=== PATIENT | female | born 1950 | race Caucasian/White ===

== ENCOUNTER → 2018-09-19 | Outpatient (CLI) | payer MEDICARE, SELFPAY ==
[2018-08-26 14:14] VITALS: BMI 37.2
--- NOTE | 2018-09-19 07:46 | ECHOD_ITS ---
Reason For Study: MURMUR Procedure This was a 2D Doppler, Color Flow transthoracic echocardiogram. The exam was of adequate technical quality. Exam performed in department. Left Ventricle Normal LV size. Left ventricular systolic function is normal. The estimated ejection fraction is 65 %. No evidence for diastolic dysfunction. No regional wall motion abnormalities noted. Right Ventricle Normal RV size. Normal systolic function. Atria The left atrium is mildly enlarged. Normal right atrium. No doppler evidence for ASD. Mitral Valve There is mild mitral annular calcification. Distention of the mitral annular calcification onto the mitral valve leaflet. Mild (1+) mitral valve insufficiency. Tricuspid Valve Normal tricuspid valve. Trivial tricuspid valve insufficiency. Right ventricular systolic pressure estimated to be 35 mmHg. Aortic Valve Trisinus/trileaflet aortic valve. Mild diffuse aortic valve thickening. Moderate focal aortic valve calcification. Mild aortic stenosis. Mild (1+) aortic valve insufficiency. Pulmonic Valve The pulmonic valve is not well visualized. Great Vessels Normal sized aortic root. Pericardium/Pleural No pericardial effusion. MMode/2D Measurements & Calculations LVIDd: 4.9 cm IVSd: 0.65 cm LVOT diam: 2.0 cm LVIDs: 3.0 cm LVPWd: 0.74 cm LVOT area: 3.0 cm2 RVDd: 3.5 cm FS: 37.7 % Ao root diam: 2.1 cm LAV(MOD-bp): 67.7 ml Aortic Valve Planimetry: 1.1 cm2 LAV(MOD-bp) Indexed: 35.0 ml/m2 LAV(MOD-sp2): 70.9 ml LAV(MOD-sp4): 65.2 ml LA A4 area: 21.7 cm2 RA A4 area: 14.3 cm2 Time Measurements MV dec time: 0.23 sec Doppler Measurements & Calculations MV E max rosendo: 93.9 cm/sec Lat Peak E' Rosendo: 10.1 cm/sec Med Peak E' Rosendo: 8.1 cm/sec MV A max rosendo: 110.6 cm/sec E/E' lat: 9.3 E/E' med: 11.6 MV E/A: 0.85 MV V2 max: 110.8 cm/sec Ao V2 max: 281.4 cm/sec AI max rosendo: 484.1 cm/sec MV max P.9 mmHg Ao max P.7 mmHg AI max P.8 mmHg MV V2 mean: 73.2 cm/sec Ao V2 mean: 210.5 cm/sec AI dec slope: 305.6 cm/sec2 MV mean P.3 mmHg Ao mean P.1 mmHg AI P1/2t: 464.0 msec MV V2 VTI: 35.3 cm Ao V2 VTI: 69.2 cm MVA(VTI): 2.6 cm2 AZ(I,D): 1.3 cm2 AZ(V,D): 1.3 cm2 LV V1 max: 118.9 cm/sec SV(LVOT): 90.9 ml TR max rosendo: 266.8 cm/sec LV V1 max P.7 mmHg TR max P.5 mmHg LV V1 mean P.1 mmHg LV V1 mean: 83.1 cm/sec LV V1 VTI: 30.3 cm MV P1/2t-pr_phl: 112.5 msec Interpretation Summary Left ventricular systolic function is normal. The estimated ejection fraction is 65 %. The left atrium is mildly enlarged. There is mild mitral annular calcification. Distention of the mitral annular calcification onto the mitral valve leaflet. Mild (1+) mitral valve insufficiency. Trivial tricuspid valve insufficiency. Mild aortic stenosis. Mild (1+) aortic valve insufficiency. Right ventricular systolic pressure estimated to be 35 mmHg. No evidence for diastolic dysfunction. Ordering Physician: Alexis Grewal Referring Physician: AUGUSTINE MATHEW Performed By: Deann Crain, RDCS, RVT
== END | disposition home or self-care (01) ==
PROVIDERS: Family Provider Family Medicine; PCP Family Medicine; Referring Provider Internal Medicine Cardiovascular Disease; Visit Provider Internal Medicine Cardiovascular Disease
DX: I49.1 Atrial premature depolarization (principal); I35.0 Nonrheumatic aortic (valve) stenosis
CPT/HCPCS: 93306

== ENCOUNTER → 2021-09-27 | Outpatient (CLI) | payer MEDICARE, SELFPAY ==
--- NOTE | 2021-09-27 13:51 | ECHOD_ITS ---
Reason For Study: Palps, Procedure This was a 2D Doppler, Color Flow transthoracic echocardiogram. The exam was of adequate technical quality. Exam performed in department. Left Ventricle Normal LV size. Left ventricular systolic function is normal. The estimated ejection fraction is 65 %. There is evidence of diastolic dysfunction. No regional wall motion abnormalities noted. Right Ventricle Normal RV size. Normal systolic function. Atria The left atrium is mildly enlarged. Normal right atrium. No doppler evidence for ASD. Mitral Valve There is mild to moderate mitral annular calcification. Extension of the mitral annular calcification onto the base of the posterior mitral valve leaflet. The mitral valve chordae are thickened and/or calcified. Trivial mitral valve insufficiency. Tricuspid Valve Normal tricuspid valve. Trivial tricuspid valve insufficiency. Right ventricular systolic pressure estimated to be 25 mmHg. Aortic Valve Trisinus/trileaflet aortic valve. Mild diffuse aortic valve thickening. Mild diffuse aortic valve calcification. Moderate aortic stenosis. Mild (1+) aortic valve insufficiency. Pulmonic Valve The pulmonic valve is not well visualized. Great Vessels Normal sized aortic root. Pericardium/Pleural No pericardial effusion. MMode/2D Measurements & Calculations LVIDd: 4.1 cm IVSd: 0.94 cm LVOT diam: 2.0 cm LVIDs: 2.3 cm LVPWd: 0.91 cm LVOT area: 3.0 cm2 RVDd: 3.4 cm FS: 44.0 % Ao root diam: 2.9 cm LAV(MOD-bp): 67.1 ml LVAd ap4: 26.4 cm2 LAV(MOD-bp) Indexed: 35.8 ml/m2 LVLd ap4: 7.3 cm LAV(MOD-sp2): 57.5 ml EDV(MOD-sp4): 79.8 ml LAV(MOD-sp4): 77.5 ml EDV(sp4-el): 81.4 ml LVAs ap4: 14.1 cm2 LVLs ap4: 6.1 cm ESV(MOD-sp4): 27.7 ml ESV(sp4-el): 27.5 ml EF(MOD-sp4): 65.3 % EF(sp4-el): 66.2 % LVAd ap2: 26.5 cm2 SV(MOD-sp4): 52.1 ml SV(MOD-sp2): 51.7 ml LVLd ap2: 7.3 cm EDV(MOD-sp2): 79.8 ml EDV(sp2-el): 81.6 ml LVAs ap2: 14.5 cm2 LVLs ap2: 6.3 cm ESV(MOD-sp2): 28.1 ml ESV(sp2-el): 28.2 ml EF(MOD-sp2): 64.7 % SV(sp4-el): 53.9 ml LA dimension(2D): 4.0 cm LA A4 area: 22.8 cm2 RA A4 area: 10.2 cm2 Doppler Measurements & Calculations MV E max rosendo: 104.2 cm/sec Lat Peak E' Rosendo: 7.6 cm/sec Med Peak E' Rosendo: 6.0 cm/sec MV A max rosendo: 121.4 cm/sec E/E' lat: 13.7 E/E' med: 17.3 MV E/A: 0.86 Ao V2 max: 387.9 cm/sec AI max rosendo: 315.8 cm/sec LV V1 max: 134.1 cm/sec Ao max P.3 mmHg AI max P.9 mmHg LV V1 max P.2 mmHg Ao V2 mean: 279.5 cm/sec AI dec slope: 173.0 cm/sec2 LV V1 mean P.0 mmHg Ao mean P.8 mmHg AI P1/2t: 534.7 msec LV V1 mean: 95.2 cm/sec Ao V2 VTI: 96.2 cm LV V1 VTI: 32.5 cm AZ(I,D): 1.0 cm2 ZA(V,D): 1.0 cm2 SV(LVOT): 97.2 ml PA V2 max: 125.0 cm/sec TR max rosendo: 235.6 cm/sec TR max P.2 mmHg ECHO/Echo Complete Interpretation Summary Left ventricular systolic function is normal. The estimated ejection fraction is 65 %. The left atrium is mildly enlarged. There is mild to moderate mitral annular calcification. Extension of the mitral annular calcification onto the base of the posterior mi tral valve leaflet. The mitral valve chordae are thickened and/or calcified. Trivial mitral valve insufficiency. Trivial tricuspid valve insufficiency. Moderate aortic stenosis. Mild (1+) aortic valve insufficiency. Right ventricular systolic pressure estimated to be 25 mmHg. There is evidence of diastolic dysfunction. Ordering Physician: Alexis Grewal Referring Physician: Mari Mac Performed By: Michelle Bird RDCS
== END | disposition home or self-care (01) ==
LOC: CVS 13:48
PROVIDERS: PCP Family Medicine; Referring Provider Internal Medicine Cardiovascular Disease; Visit Provider Internal Medicine Cardiovascular Disease
DX: R00.2 Palpitations (principal); I35.0 Nonrheumatic aortic (valve) stenosis
CPT/HCPCS: 93306

== ENCOUNTER 2022-09-10 14:28 | Observation (INO) | payer MEDICARE, SELFPAY ==
[2022-09-10 14:28] VITALS: BP 117/76; PULSE 74; RESP 18; TEMP 36.1; O2SAT 97
--- NOTE | 2022-09-10 14:49 | EX.ED.DYSGE1 ---
HPI <JOB Lopez - Last Filed: 09/10/22 16:42> History of Present Illness Chief Complaint: Lower Extremity Injury Narrative Narrative: Patient is a 71-year-old female with history of hypertension, mitral valve prolapse, asthma who presents to the emergency department after a mechanical fall injuring her left ankle, left knee. Patient states she was visiting her here when she was walking, she missed stepped, rolling her left ankle and falling to her left knee. She states that she is having difficulty bearing weight, there is swelling, and she is here for evaluation. She denies any head or neck injury. Denies any LOC. [facility] <JOB Lopez - Last Filed: 09/10/22 16:42> [facility] Medical History Abnormal EKG Aortic stenosis Asthma Atrial premature depolarization COPD (chronic obstructive pulmonary disease) Lung nodules Nonrheumatic aortic (valve) stenosis TAYLOR (obstructive sleep apnea) Palpitations Premature atrial contraction Home Medications albuterol sulfate 90 mcg/actuation aerosol inhaler (ProAir HFA) 1 puff inhalation Q6H 06/20/17 [History Last Taken Unknown] aspirin 81 mg tablet,delayed release 81 mg PO QDAY 06/20/17 [History Last Taken Unknown] cetirizine 10 mg capsule (Zyrtec) 10 mg PO QDAY PRN Allergies 06/20/17 [History Last Taken Unknown] fluticasone propionate 50 mcg/actuation nasal spray,suspension (Flonase Allergy Relief) 1 spray intranasal QDAY PRN Allergies 06/20/17 [History Last Taken Unknown] omega-3 fatty acids 1,000 mg capsule (Fish Oil Concentrate) 1,000 mg PO QDAY 06/20/17 [History Last Taken Unknown] lisinopril 5 mg tablet 5 mg PO DAILY 09/01/19 [History Last Taken Unknown] ferrous sulfate 325 mg (65 mg iron) tablet 325 mg PO DAILY 08/29/21 [History Last Taken Unknown] pantoprazole 40 mg tablet,delayed release 40 mg PO DAILY 08/29/21 [History Last Taken Unknown] metoprolol succinate 25 mg tablet,extended release 24 hr (Toprol XL) 25 mg PO QDAY #90 tabs 05/22/22 [Rx Last Taken Unknown] albuterol sulfate 90 mcg/actuation aerosol inhaler (ProAir HFA) 1 inh inhalation Q6H PRN Shortness Of Breath 09/10/22 [History Last Taken Unknown] fluticasone 250 mcg-salmeterol 50 mcg/dose blistr powdr for inhalation (Wixela Inhub) 1 inh inhalation Q12H 09/10/22 [History Last Taken Unknown] Allergy/AdvReac Type Severity Reaction Status Date / Time acetaminophen [From Percocet] AdvReac Intermediate N/V and Verified 09/10/22 14:28 Dizziness codeine AdvReac Intermediate Abdominal Verified 09/10/22 14:28 Pain hydrocodone [From Vicodin] AdvReac Intermediate N/V and Verified 09/10/22 14:28 Dizziness oxycodone [From Percocet] AdvReac Intermediate N/V and Verified 09/10/22 14:28 Dizziness Family History Father Heart disease Mother Heart disease Surgical History H/O nasal polypectomy History of total right knee replacement Social History Smoking Status: Current every day smoker tobacco type: cigarettes alcohol intake: never substance use type: does not use ROS <JOB Lopez - Last Filed: 09/10/22 16:42> ROS ED ROS Narrative Constitutional: Negative for fever, chills, weight loss, weakness Eyes: Negative for vision loss, vision change, double vision ENT: Negative for any sore throat, ear pain, congestion Cardiovascular: Negative for any chest pain, tightness, palpitations Respiratory: Negative for any cough, sputum production, hemoptysis, dyspnea, dyspnea on exertion, orthopnea Gastrointestinal: Negative for any abdominal pain, nausea, vomiting, diarrhea, constipation, blood in stool, blood in vomit : Negative for any urinary frequency, dysuria, retention, blood in urine Muscle skeletal: Negative for any muscle joint pain, stiffness, myalgias, arthralgias, neck pain, back pain. Positive for left ankle, left knee pain Neurological: Negative for any headache, syncope, numbness or tingling, dizziness Skin: Negative for any rashes, lumps, itching, abrasions, lacerations Psychiatric: Negative for any depression, anxiety, stress, suicidal ideation, homicidal ideation Hematologic: Negative for any easy bruising, excessive bruising, easy bleeding Allergies: Negative for any eczema, hives, rash EXAM <JOB Lopez - Last Filed: 09/10/22 16:42> Physical Exam Narrative Exam Narrative: Vital signs reviewed. Extremities: No peripheral edema. Patient has some edema to the lateral malleolus, patient has worsening pain with dorsiflexion, plantarflexion. Patient has no pain along the fifth metatarsal. Patient has most of the pain around the lateral malleolus of the ankle. Patient also has pain to the inferior patella. She has difficulty with flexion. She does have an intact extensor mechanism. Neuro: Cranial nerves II through XII intact, no focal neurological deficits. Skin: Clean dry and intact with no rash, purpura, petechiae, vesicles or pustules. Backs/flank: No CVA tenderness, no midline spinal tenderness, no deformity. Psych: Normal mood and affect. No SI, HI or acute psychosis. Const Vital Signs: 09/10/22 14:28 Temperature 96.9 F L Temperature Source Temporal Pulse Rate 74 Respiratory Rate 18 Blood Pressure 117/76 Blood Pressure Mean 89 Pulse Ox 97 Oxygen Delivery Method Room Air Positive well nourished and well developed General Appearance ED: well developed <Dr. Luis Fernando Hameed DO - Last Filed: 09/10/22 17:12> Physical Exam Const Vital Signs: 09/10/22 14:28 Temperature 96.9 F L Temperature Source Temporal Pulse Rate 74 Respiratory Rate 18 Blood Pressure 117/76 Blood Pressure Mean 89 Pulse Ox 97 Oxygen Delivery Method Room Air MDM <JOB Lopez - Last Filed: 09/10/22 16:42> [facility] Lab Data Labs: Laboratory Results - last 24 hr 09/10/22 09/10/22 09/10/22 16:40 16:40 16:40 WBC 7.2 RBC 4.14 L Hgb 12.8 Hct 39.5 MCV 95.4 MCH 30.9 MCHC 32.4 RDW Std Deviation 46.6 H RDW Coeff of Yessi 13.2 Plt Count 260 MPV 9.6 Immature Gran % (Auto) 0.300 Neut % (Auto) 67.4 Lymph % (Auto) 20.2 [place] % (Auto) 6.4 Eos % (Auto) 4.7 Baso % (Auto) 1.0 Absolute Neuts (auto) 4.9 Absolute Lymphs (auto) 1.46 Nucleated RBC % 0 PT 13.0 INR 1.0 Sodium 141 Potassium 4.2 Chloride 109 H Carbon Dioxide 23.0 Anion Gap 9 BUN 19 H Creatinine 1.37 H Estim Creat Clear Calc 31.61 Est GFR (MDRD) Af Amer 49 L Est GFR (MDRD) Non-Af 40 L BUN/Creatinine Ratio 13.9 Glucose 105 Calcium 8.9 Radiography Diagnostic Testing: Clinical Impression(s) from Imaging Studies Ankle X-Ray 09/10/22 15:45 IMPRESSION: Nondisplaced lateral malleolar fracture. Posterior tibial fracture. Electronically Signed: Capri Washington MD at 16:18 EDT Reading Location ID and State: Sommer Pandey MD Tel , Service support , Knee X-Ray 09/10/22 15:45 IMPRESSION: Large joint effusion. Suspect mild depression of the lateral tibial plateau, age indeterminate. Consider CT of the knee to exclude acute fracture. Electronically Signed: Capri Washington MD at 16:10 EDT Reading Location ID and State: Sommer Pandey MD Tel , Service support , Treatment and Re-Evaluation :: All radiologic examinations were read, reviewed by the emergency department attending. From these reads, a plan of care will be put in place. Patient presents to the emergency department with complaints of left ankle pain, left knee pain following a fall that occurred while she was visiting her in the hospital today. Patient is unable to bear weight, patient is swollen. Patient did receive x-rays of the left ankle which showed a nondisplaced lateral malleolus fracture, as well as posterior tibial fracture. Patient's x-ray of the knee shows a large joint effusion with suspected mild depression of the lateral tibial plateau, patient is significantly tender on palpation to this area, patient be clinically treated for a fracture. Patient was offered analgesia however states that she does not want anything secondary to having all of her allergies. Secondary to the patient's weight, age, lack of family members that live close, patient is unable to care for self at home. She will be nonweightbearing. Patient will need to be admitted to the hospital. Did speak to Dr. Pryor orthopedics, he would like her to be placed in a long posterior leg splint with a sugar-tong. I spoke with Dr. Jackson hospitalist, he will admit this patient. <Dr. Luis Fernando Hameed, DO - Last Filed: 09/10/22 17:12> [facility] Narrative Medical decision making narrative: Patient presents to the emergency department with complaints of left ankle pain, left knee pain following a fall that occurred while she was visiting her in the hospital today. Patient is unable to bear weight, patient is swollen. Patient did receive x-rays of the left ankle which showed a nondisplaced lateral malleolus fracture, as well as posterior tibial fracture. Patient's x-ray of the knee shows a large joint effusion with suspected mild depression of the lateral tibial plateau, patient is significantly tender on palpation to this area, patient be clinically treated for a fracture. Patient was offered analgesia however states that she does not want anything secondary to having all of her allergies. Secondary to the patient's weight, age, lack of family members that live close, patient is unable to care for self at home. She will be nonweightbearing. Patient will need to be admitted to the hospital. Did speak to Dr. Pryor orthopedics, he would like her to be placed in a long posterior leg splint with a sugar-tong. I spoke with Dr. Jackson hospitalist, he will admit this patient. Patient presenting after mechanical fall with visiting her in the hospital. He was admitted yesterday. She had a fall and her x-rays show on my interpretation that she has a posterior tibial/distal fibular fracture of the left ankle as well as a plateau fracture on the same side. Patient does not want a thing for pain because she does not tolerate any pain medicine. Patient is elderly and obese a and a long discussion was held with her regarding her ability to get around at home should she be in a long-leg splint or even an immobilizer and have to be nonweightbearing on the left leg and she did not think she could do it at home. again is currently hospitalized and her son cannot help all the time. Given this we will admit her to the hospital. Lab Data Labs: Laboratory Results - last 24 hr 09/10/22 09/10/22 09/10/22 16:40 16:40 16:40 WBC 7.2 RBC 4.14 L Hgb 12.8 Hct 39.5 MCV 95.4 MCH 30.9 MCHC 32.4 RDW Std Deviation 46.6 H RDW Coeff of Yessi 13.2 Plt Count 260 MPV 9.6 Immature Gran % (Auto) 0.300 Neut % (Auto) 67.4 Lymph % (Auto) 20.2 [place] % (Auto) 6.4 Eos % (Auto) 4.7 Baso % (Auto) 1.0 Absolute Neuts (auto) 4.9 Absolute Lymphs (auto) 1.46 Nucleated RBC % 0 PT 13.0 INR 1.0 Sodium 141 Potassium 4.2 Chloride 109 H Carbon Dioxide 23.0 Anion Gap 9 BUN 19 H Creatinine 1.37 H Estim Creat Clear Calc 31.61 Est GFR (MDRD) Af Amer 49 L Est GFR (MDRD) Non-Af 40 L BUN/Creatinine Ratio 13.9 Glucose 105 Calcium 8.9 Radiography Diagnostic Testing: Clinical Impression(s) from Imaging Studies Ankle X-Ray 09/10/22 15:45 IMPRESSION: Nondisplaced lateral malleolar fracture. Posterior tibial fracture. Electronically Signed: Capri Washington MD at 16:18 EDT Reading Location ID and State: Sommer Pandey MD Tel , Service support , Knee X-Ray 09/10/22 15:45 IMPRESSION: Large joint effusion. Suspect mild depression of the lateral tibial plateau, age indeterminate. Consider CT of the knee to exclude acute fracture. Electronically Signed: Capri Washington MD at 16:10 EDT Reading Location ID and State: Sommer Pandey MD Tel , Service support , All radiologic examinations were read, reviewed by the emergency department attending. From these reads, a plan of care will be put in place. Discharge Plan Dx/Rx/DC Orders Clinical Impression: Fall, Ankle fracture, lateral malleolus, closed, Posterior tibial plateau fracture Disposition Disposition: [facility]
[2022-09-10 15:25] VITALS: BMI 34.3
--- NOTE | 2022-09-10 15:45 | RAD_ITS ---
INDICATION: fall EXAMINATION/TECHNIQUE: X-RAY - LEFT XR Ankle Min 3 Views 4 VIEWS COMPARISON: FINDINGS: Bones are demineralized. Acute, nondisplaced fracture of the lateral malleolus. No angulation. Acute, nondisplaced fracture of the posterior tibia is suspected, extending to the articular surface. Evaluation is limited due to superimposed bandage. No destructive bone changes. Joint spaces are well-maintained. Normal alignment. Marked anterior and lateral soft tissue swelling. Mild medial soft tissue swelling. No radiopaque foreign body or soft tissue gas. RAD/Ankle min 3 Views IMPRESSION: Nondisplaced lateral malleolar fracture. Posterior tibial fracture. Electronically Signed: Capri Washington MD at 16:18 EDT Reading Location ID and State: [id number] / Tel , Service support ,
--- NOTE | 2022-09-10 15:45 | RAD_ITS ---
INDICATION: fall EXAMINATION/TECHNIQUE: X-RAY - LEFT XR Knee Complete 4 Views or More 4 VIEWS COMPARISON: FINDINGS: Bones are demineralized. Mild depression of the lateral tibial plateau, age indeterminate. No destructive bone changes. Large joint effusion. Joint spaces are otherwise well-maintained. Normal alignment. Soft tissues are unremarkable. No radiopaque foreign body or soft tissue gas. RAD/Knee 4 or More Views IMPRESSION: Large joint effusion. Suspect mild depression of the lateral tibial plateau, age indeterminate. Consider CT of the knee to exclude acute fracture. Electronically Signed: Capri Washington MD at 16:10 EDT Reading Location ID and State: [id number] / Tel , Service support ,
[2022-09-10 16:51] LABS: Absolute Lymphocyte Count 1.46 X10^3/uL (0.83-4.51); Absolute Neutrophil Count 4.9 X10^3/uL (2.0-7.7); Basophil# 0.07 X10^3/uL; Eosinophil# 0.34 X10^3/uL; Eosinophils% 4.7 % (0-5); Hematocrit 39.5 % (37-47); Hemoglobin 12.8 g/dL (12.0-15.0); Lymphocyte # 1.46 X10^3/ul (0.83-4.51); Lymphocyte % 20.2 % (19-41); Mean Corp Hgb Conc 32.4 g/dL (32-36); Mean Corpuscular Hgb 30.9 pg (27.0-32.0); Mean Corpuscular Volume 95.4 fL (81-99); Mean Platelet Vol. 9.6 fl (6.2-12.0); Monocyte# 0.46 X10^3/uL; Monocyte% 6.4 % (0-10); NRBC Flagged by Analyzer 0 % (0-5); Neutrophil # 4.87 X10^3/uL (2.7-7.7); Neutrophil % 67.4 % (47-70); Platelet Count 260 K/mm3 (150-450); RBC Distribution Width CV 13.2 % (11.6-14.6); RBC Distribution Width SD 46.6 fl (35.1-43.9); Red Blood Count 4.14 M/mm3 (4.2-5.4); White Blood Count 7.2 K/mm3 (4.4-11.0)
[2022-09-10 17:03] LABS: Anion Gap 9 (5-15); BUN 19 mg/dL (7-18); BUN/Creat Ratio 13.9 RATIO (10-20); Calcium,Total 8.9 mg/dL (8.5-10.1); Chloride 109 mmol/L (98-107); Creatinine, Serum 1.37 mg/dL (0.55-1.02); EST Glomerular Filtration Rate 40 mL/min (>60); Est Glom Filt Rate - Afr Amer 49 mL/min (>60); Estimated Creatinine Clearance 31.61 ml/min; Glucose 105 mg/dL (74-106); Potassium 4.2 mmol/L (3.5-5.1); Sodium Level 141 mmol/L (136-145)
[2022-09-10] MEDS: fentaNYL 100 MCG/2 ML Ampul 50 MCG IV (17:40)
[2022-09-10] MEDS: Ondansetron 4 MG/2 ML Vial IV (17:43)
[2022-09-10 17:47] VITALS: BP 121/64; PULSE 92; RESP 16; TEMP 37.2; O2SAT 94
--- NOTE | 2022-09-10 18:00 | PCM.HP.STD ---
[facility] - General General Date of Admission: 09/10/22 Date of Service: 09/10/22 Chief Complaint: Buckled over shoe and fell down on her left knee and ankle. HPI Narrative EDDY MCDONALD, is a 71 F who is visiting in the hospital for her who is also admitted was brought to ER after she buckled over the on the hallway and fell down on her left knee and ankle and twisted it. She has history of severe degenerative arthritis of left knee and is scheduled with orthopedic surgeon outside. She said she was supposed to have left knee TKR. She felt severe pain after fall intensity from knee, leg and ankle along with the swelling. She has difficulty bearing weight therefore brought to ED. She denies head injury or loss of consciousness. X-rays were done in the ER and left knee x-ray shows large joint effusion with suspected mild depression of lateral tibial plateau, age-indeterminate. Ankle x-ray showed nondisplaced lateral malleolus fracture and posterior tibial fracture. ER physician consulted Dr. Aidan Pryor who advised long-leg splint and nonweightbearing on left lower extremity. Patient has a history of asthma but does not seem in acute exacerbation. No acute cough, shortness of breath, chest pain, tightness or pressure. No acute URI symptoms including runny nose. Denies dysuria. [facility] Medical History Abnormal EKG Aortic stenosis Asthma Atrial premature depolarization COPD (chronic obstructive pulmonary disease) Lung nodules Nonrheumatic aortic (valve) stenosis TAYLOR (obstructive sleep apnea) Palpitations Premature atrial contraction Home Medications albuterol sulfate 90 mcg/actuation aerosol inhaler (ProAir HFA) 1 puff inhalation Q6H 06/20/17 [History Last Taken Unknown] aspirin 81 mg tablet,delayed release 81 mg PO QDAY 06/20/17 [History Last Taken Unknown] cetirizine 10 mg capsule (Zyrtec) 10 mg PO QDAY PRN Allergies 06/20/17 [History Last Taken Unknown] fluticasone propionate 50 mcg/actuation nasal spray,suspension (Flonase Allergy Relief) 1 spray intranasal QDAY PRN Allergies 06/20/17 [History Last Taken Unknown] omega-3 fatty acids 1,000 mg capsule (Fish Oil Concentrate) 1,000 mg PO QDAY 06/20/17 [History Last Taken Unknown] lisinopril 5 mg tablet 5 mg PO DAILY 09/01/19 [History Last Taken Unknown] ferrous sulfate 325 mg (65 mg iron) tablet 325 mg PO DAILY 08/29/21 [History Last Taken Unknown] pantoprazole 40 mg tablet,delayed release 40 mg PO DAILY 08/29/21 [History Last Taken Unknown] metoprolol succinate 25 mg tablet,extended release 24 hr (Toprol XL) 25 mg PO QDAY #90 tabs 05/22/22 [Rx Last Taken Unknown] albuterol sulfate 90 mcg/actuation aerosol inhaler (ProAir HFA) 1 inh inhalation Q6H PRN Shortness Of Breath 09/10/22 [History Last Taken Unknown] fluticasone 250 mcg-salmeterol 50 mcg/dose blistr powdr for inhalation (Wixela Inhub) 1 inh inhalation Q12H 09/10/22 [History Last Taken Unknown] Allergy/AdvReac Type Severity Reaction Status Date / Time acetaminophen [From Percocet] AdvReac Intermediate N/V and Verified 09/10/22 14:28 Dizziness codeine AdvReac Intermediate Abdominal Verified 09/10/22 14:28 Pain hydrocodone [From Vicodin] AdvReac Intermediate N/V and Verified 09/10/22 14:28 Dizziness oxycodone [From Percocet] AdvReac Intermediate N/V and Verified 09/10/22 14:28 Dizziness Family History Father Heart disease Mother Heart disease Surgical History H/O nasal polypectomy History of total right knee replacement Social History Smoking Status: Current every day smoker tobacco type: cigarettes alcohol intake: never substance use type: does not use ROS ROS Narrative Constitutional: Reports fatigue and weakness. No fever. HEENT: Reports systems reviewed and no addt'l complaints, except as documented Respiratory/Chest: No acute shortness of breath or respiratory distress. CVS: Heart murmur. No chest pain pressure tightness. Gastrointestinal: Denies coffee ground emesis, hematemesis or vomiting Genitourinary: Denies burning urination or new urinary tract symptoms Musculoskeletal: As described in HPI. Neurologic: Denies seizure-like symptoms. No acute strokelike symptoms. skin: No ulcer. No rash Endocrinology: Reports systems reviewed and no addt'l complaints, except as documented. Morbid obesity. Hematologic/Lymphatic: Reports systems reviewed and no addt'l complaints, except as documented Rest 14 ROS are negative except as mentioned in HPI Vital Signs Vital Signs Vital Signs: 09/10/22 14:28 09/10/22 17:47 Temperature 96.9 F L 99.0 F Temperature Source Temporal Temporal Pulse Rate 74 92 Respiratory Rate 18 16 Blood Pressure 117/76 121/64 H Blood Pressure Mean 89 83 Pulse Ox 97 94 Oxygen Delivery Method Room Air Room Air Weight Weight: 194 lb 0.108 oz Body Mass Index (BMI) 34.3 Physical Exam Narrative General: Alert, Oriented x3, Cooperative, morbid obesity BMI of 34.4 kg/m? HEENT: Atraumatic, PERRLA, EOMI, Normocephalic Oral: Oral mucosa moist. No Gingival or Mucosal Lesions/ Ulcerations Neck: Supple, No JVD, Negative Carotid Bruits Lungs: Air entry diminished in bilateral lung bases. Mild expiratory wheezing. No tachypnea or hypoxia. Cardiovascular: Regular rate, Regular Rhythm, Normal S1, Normal S2, ejection systolic murmur right second ICS and LLSB. Aortic stenosis murmur. Abdomen: Bowel Sounds Present, Soft, Non Tender, Non-Distended : No renal angle tenderness. No suprapubic tenderness. Extremities: Swelling of left lower extremity due to fall, Capillary Refill Less than 3 Seconds Skin: No rashes, No breakdown Musculoskeletal: Swelling, tenderness from left knee below. LLE long splint in ED. Can move toes. No Tenderness to Palpation of Joints or Extremities Neurological: Cranial nerves II-XII grossly intact, DTR 2+/4 and Symmetrical, Neuro grossly intact Psych/Mental Status: Flat affect. Pain Results Lab / Micro Data Result Diagrams: 09/10/22 16:40 09/10/22 16:40 Labs: Laboratory Results - last 24 hr 09/10/22 16:40: PT 13.0, INR 1.0 09/10/22 16:40: WBC 7.2, RBC 4.14 L, Hgb 12.8, Hct 39.5, MCV 95.4, MCH 30.9, MCHC 32.4, RDW Std Deviation 46.6 H, RDW Coeff of Yessi 13.2, Plt Count 260, MPV 9.6, Immature Gran % (Auto) 0.300, Neut % (Auto) 67.4, Lymph % (Auto) 20.2, [place] % (Auto) 6.4, Eos % (Auto) 4.7, Baso % (Auto) 1.0, Absolute Neuts (auto) 4.9, Absolute Lymphs (auto) 1.46, Nucleated RBC % 0 09/10/22 16:40: Sodium 141, Potassium 4.2, Chloride 109 H, Carbon Dioxide 23.0, Anion Gap 9, BUN 19 H, Creatinine 1.37 H, Estim Creat Clear Calc 31.61, Est GFR (MDRD) Af Amer 49 L, Est GFR (MDRD) Non-Af 40 L, BUN/Creatinine Ratio 13.9, Glucose 105, Calcium 8.9 Radiology Impression Ankle X-Ray 09/10/22 15:45 IMPRESSION: Nondisplaced lateral malleolar fracture. Posterior tibial fracture. Electronically Signed: Capri Washington MD at 16:18 EDT Reading Location ID and State: Sommer Pandey MD Tel , Service support , Knee X-Ray 09/10/22 15:45 IMPRESSION: Large joint effusion. Suspect mild depression of the lateral tibial plateau, age indeterminate. Consider CT of the knee to exclude acute fracture. Electronically Signed: Capri Washington MD at 16:10 EDT Reading Location ID and State: Sommer Pandey MD Tel , Service support , Assessment & Plan Assessment/Plan (1) Fall: (2) Ankle fracture, lateral malleolus, closed: (3) Posterior tibial plateau fracture: PLAN: Plan This 71-year-old female is being admitted after a fall resulting into fracture as described below: 1. Acute debility due to left posterior tibial plateau fracture with mild depression of lateral tibia, left nondisplaced lateral malleolar fracture of ankle: Patient is being admitted on [facility] floor. Pain control with Tylenol and morphine. Dr. Aidan Pryor is consulted. Patient seems allergic with hydrocodone and oxycodone. Compazine as needed for nausea or vomiting. PT and OT ordered. Incentive spirometry. 2. Nonrheumatic aortic stenosis, history of premature atrial contraction and chronic HFpEF: Patient had echo in September 2021. Reported EF 65%, moderate aortic stenosis, mild aortic insufficiency. RVSP 25 mmHg. Mild to moderate mitral annular calcification with trivial MR. LA mildly enlarged. Evidence of diastolic dysfunction. Patient does not seem to be in acute heart failure. 3. COPD/asthma overlap with active smoker: Patient still smokes cigarettes. Denies shortness of breath but patient is in mild wheezing therefore DuoNeb every 4 hourly as needed first dose now ordered. Incentive spirometry. Continue baseline inhaler fluticasone salmeterol and fluticasone nasal spray. It seems patient also has a lung nodule. Follow-up in pulmonary clinic as an outpatient. 4. Obstructive sleep apnea: CPAP ordered. 5. DVT prophylaxis: Heparin 5000 subcutaneous every 8 hourly. Living will/advanced directive/end of life care: Patient does have living will or advanced directive. Her is power of health care attorney for health. After discussion of benefits/risks procedures involved with full code, DNR CC arrest and DNR CC, the patient opted for full code. Discussed with the patient's son near the bedside Patient does want artificial life support including intubation, tube feed, ventilator and/chest compression, central venous catheter, vasopressor and DC shock if needed Total time spent in [id number] encounter in discussion of advanced directive 17 minutes. Clinical Impression(s) from Imaging Studies Ankle X-Ray 09/10/22 15:45 IMPRESSION: Nondisplaced lateral malleolar fracture. Posterior tibial fracture. Electronically Signed: Capri Washington MD at 16:18 EDT Reading Location ID and State: [id number] / Tel , Service support , Knee X-Ray 09/10/22 15:45 IMPRESSION: Large joint effusion. Suspect mild depression of the lateral tibial plateau, age indeterminate. Consider CT of the knee to exclude acute fracture. Charges/Coding Visit Charges Inpatient E&M: 35942 Init Hosp L3 Procedures Hospitalists Procedures: 20262 Advncd Care Plan 30 Min
[2022-09-10 19:07] VITALS: BP 116/64; PULSE 100; RESP 18; TEMP 37.1; O2SAT 90
[2022-09-10 19:10] VITALS: BMI 34.7
[2022-09-10 19:41] VITALS: PULSE 94; RESP 24
[2022-09-10] MEDS: Albuterol 2.5 MG/3 ML VIAL.NEB. INHALATION (19:41)
[2022-09-10] MEDS: Budesonide Respules 0.5 MG/2 ML AMPUL.NEB. INHALATION (19:42)
[2022-09-10] MEDS: Morphine 2 MG/ML Syringe IV (20:13)
[2022-09-10] MEDS: 0.9% Saline Lock 10 ML Syringe IV (20:14)
[2022-09-10] MEDS: Lactated Ringers 1,000 ML 75 ML IV (20:14)
--- NOTE | 2022-09-10 21:07 | CPS ---
Pt refuses CPAP at this time. Pt does not wear at home
[2022-09-10 21:54] VITALS: BP 95/64; PULSE 100; RESP 18; TEMP 36.7; O2SAT 95
[2022-09-10] MEDS: traMADol 50 MG Tablet 100 MG PO (22:03)
[2022-09-10] MEDS: Senna/Docusate Sodium 1 Tablet 2 TABLET PO (22:04)
[2022-09-10] MEDS: Acetaminophen 500 MG Tablet 1000 MG PO (22:04)
[2022-09-10] MEDS: Heparin Injection (Vial) 5,000 UNIT/ML VIAL 5000 UNIT SC (22:05)
[2022-09-11] VITALS (8 sets, daily range): BP systolic 88–103; BP diastolic 56–67; PULSE 61–95; RESP 16–22; TEMP 36.4–37.1; O2SAT 93–98
[2022-09-11] MEDS: traMADol 50 MG Tablet 100 MG PO (04:51)
[2022-09-11] MEDS: Heparin Injection (Vial) 5,000 UNIT/ML VIAL 5000 UNIT SC ×3 (06:04→22:37)
[2022-09-11] MEDS: Acetaminophen 500 MG Tablet 1000 MG PO ×2 (06:05→22:37)
[2022-09-11 06:10] LABS: Absolute Lymphocyte Count 1.21 X10^3/uL (0.83-4.51); Absolute Neutrophil Count 4.5 X10^3/uL (2.0-7.7); Basophil# 0.05 X10^3/uL; Basophil% 0.8 % (0-1); Eosinophil# 0.15 X10^3/uL; Eosinophils% 2.3 % (0-5); Hematocrit 33.8 % (37-47); Hemoglobin 11.4 g/dL (12.0-15.0); Lymphocyte # 1.21 X10^3/ul (0.83-4.51); Lymphocyte % 18.7 % (19-41); Mean Corp Hgb Conc 33.7 g/dL (32-36); Mean Corpuscular Hgb 32.1 pg (27.0-32.0); Mean Corpuscular Volume 95.2 fL (81-99); Mean Platelet Vol. 9.8 fl (6.2-12.0); Monocyte# 0.55 X10^3/uL; Monocyte% 8.5 % (0-10); NRBC Flagged by Analyzer 0 % (0-5); Neutrophil % 69.5 % (47-70); Platelet Count 189 K/mm3 (150-450); RBC Distribution Width CV 13.2 % (11.6-14.6); RBC Distribution Width SD 46.3 fl (35.1-43.9); Red Blood Count 3.55 M/mm3 (4.2-5.4); White Blood Count 6.5 K/mm3 (4.4-11.0)
[2022-09-11] MEDS: Budesonide Respules 0.5 MG/2 ML AMPUL.NEB. INHALATION ×2 (06:57→19:30)
[2022-09-11] MEDS: Ipratropium/Albuterol Sulfate 3 ML AMPUL.NEB INHALATION (06:57)
[2022-09-11 06:59] LABS: Anion Gap 4 (5-15); BUN 18 mg/dL (7-18); BUN/Creat Ratio 16.7 RATIO (10-20); Calcium,Total 8.4 mg/dL (8.5-10.1); Chloride 106 mmol/L (98-107); Creatinine, Serum 1.08 mg/dL (0.55-1.02); EST Glomerular Filtration Rate 53 mL/min (>60); Est Glom Filt Rate - Afr Amer 64 mL/min (>60); Glucose 119 mg/dL (74-106); Potassium 4.3 mmol/L (3.5-5.1); Sodium Level 136 mmol/L (136-145)
--- NOTE | 2022-09-11 07:15 | PN.HOSP_ITS ---
Reason for Visit Reason for Visit: Fall Subjective Subjective Patient is a 71-year-old white female who was visiting her in the hospital and unfortunately fell forward in the hallway onto her left knee and ankle. After the fall she had severe pain and difficulty bearing weight and was taken to the emergency department and x-rays there revealed a large joint effusion with suspected mild depression fracture of the lateral tibial plateau and a nondisplaced lateral malleolar fracture as well as a posterior tibial fracture. The emergency department consulted the orthopedic surgeon who advised a long-leg splint and nonweightbearing status on extremity. Orthopedic surgery has been consulted for further evaluation. Patient states her pain is fairly well controlled. She does feel that she will not be able to go home and will need some rehab prior to being discharged. She will likely be nonweightbearing on that lower extremity. Once we clarify where she will need to be go at discharge we should be able to discharge home or to SNF. As I suspect this will be nonsurgical. Objective Data Objective Data Vital Signs: Vital Signs Temp Pulse Resp BP Pulse Ox O2 Del Method O2 Flow Rate 97.5 F L 95 22 H 95/65 94 Nasal Cannula 2 09/11/22 04:39 09/11/22 06:58 09/11/22 06:58 09/11/22 04:39 09/11/22 06:58 09/11/22 06:58 09/11/22 06:58 Oxygen Flow Rate (L/min) 2 Oxygen Delivery Method Nasal Cannula Weight: 89.1 kg Body Mass Index (BMI) 34.7 Intake & Output: Intake and Output for Last 24 Hours 09/09/22 09/10/22 09/11/22 23:59 23:59 23:59 Intake Total 1000 / 1000 Output Total 600 / 600 Balance 400 / 400 Lab / Micro Data Result Diagrams: 09/11/22 05:34 09/11/22 05:34 Labs: Laboratory Results - last 24 hr 09/10/22 16:40: PT 13.0, INR 1.0 09/10/22 16:40: WBC 7.2, RBC 4.14 L, Hgb 12.8, Hct 39.5, MCV 95.4, MCH 30.9, MCHC 32.4, RDW Std Deviation 46.6 H, RDW Coeff of Yessi 13.2, Plt Count 260, MPV 9.6, Immature Gran % (Auto) 0.300, Neut % (Auto) 67.4, Lymph % (Auto) 20.2, [place] % (Auto) 6.4, Eos % (Auto) 4.7, Baso % (Auto) 1.0, Absolute Neuts (auto) 4.9, Absolute Lymphs (auto) 1.46, Nucleated RBC % 0 09/10/22 16:40: Sodium 141, Potassium 4.2, Chloride 109 H, Carbon Dioxide 23.0, Anion Gap 9, BUN 19 H, Creatinine 1.37 H, Estim Creat Clear Calc 31.61, Est GFR (MDRD) Af Amer 49 L, Est GFR (MDRD) Non-Af 40 L, BUN/Creatinine Ratio 13.9, Glucose 105, Calcium 8.9 09/11/22 05:34: WBC 6.5, RBC 3.55 L, Hgb 11.4 L, Hct 33.8 L, MCV 95.2, MCH 32.1 H, MCHC 33.7, RDW Std Deviation 46.3 H, RDW Coeff of Yessi 13.2, Plt Count 189, MPV 9.8, Immature Gran % (Auto) 0.200, Neut % (Auto) 69.5, Lymph % (Auto) 18.7 L , [place] % (Auto) 8.5, Eos % (Auto) 2.3, Baso % (Auto) 0.8, Absolute Neuts (auto) 4.5, Absolute Lymphs (auto) 1.21, Nucleated RBC % 0 09/11/22 05:34: Sodium 136, Potassium 4.3, Chloride 106, Carbon Dioxide 26.0, Anion Gap 4 L, BUN 18, Creatinine 1.08 H, Estim Creat Clear Calc 40.10, Est GFR (MDRD) Af Amer 64, Est GFR (MDRD) Non-Af 53 L, BUN/Creatinine Ratio 16.7, Glucose 119 H, Calcium 8.4 L Radiography Diagnostic Testing: Radiology Impression Ankle X-Ray 09/10/22 15:45 IMPRESSION: Nondisplaced lateral malleolar fracture. Posterior tibial fracture. Electronically Signed: Capri Washington MD at 16:18 EDT Reading Location ID and State: [id number] / Tel , Service support , Knee X-Ray 09/10/22 15:45 IMPRESSION: Large joint effusion. Suspect mild depression of the lateral tibial plateau, age indeterminate. Consider CT of the knee to exclude acute fracture. Electronically Signed: Capri Washington MD at 16:10 EDT , Physical Exam Const alert, oriented x3, no apparent distress, healthy appearing and well nourished Constitutional Narrative: Obese, white female, sitting up in bed, just finished breakfast, appears comf ortable and nontoxic HEENT head/scalp atraumatic and moist oral mucous membranes Head and Scalp: normocephalic Resp normal respiratory effort, no retractions, no use of accessory muscles and clear to auscultation bilaterally Auscultation: Negative for crackles, rhonchi or wheezes Cardio regular rate, regular rhythm, S1 normal heart sound, S2 normal heart sound, no murmurs, no rub, no gallops and no clicks GI normal to inspection, nondistended, normoactive bowel sounds and soft to palpation Extremity no clubbing, cyanosis or edema Extremity Narrative: Cap refill in left lower extremity is 2+, pedal pulses 2+ on right, splint in place on left lower extremity Neuro oriented x3, no focal motor deficits and no sensory deficits noted Speech: speech normal Psych affect normal Psych Narrative: Pleasant, appropriate Assessment & Plan Assessment/Plan (1) Fall: (2) Ankle fracture, lateral malleolus, closed: (3) Posterior tibial plateau fracture: (4) Elevated serum creatinine: PLAN: Plan Left lateral malleolar fracture (nondisplaced)/posterior tibial plateau fracture (nondisplaced) secondary to mechanical fall -Nonsurgical per orthopedic surgery -Nonweightbearing left lower extremity -Outpatient follow-up with [facility] in 7 to 10 days for her distal lower extremity -Total knee arthroplasty may need to be held and patient was encouraged to follow-up with her orthopedic surgeon in [place] to further discuss -Continue pain medication as ordered -PT/OT consultation -I do anticipate need for skilled facility at discharge Elevated serum creatinine -Improved -Baseline is unknown however serum creatinine is down to 1.08 today -Serum creatinine presentation was 1.37 -Repeat in a.m. History of aortic stenosis -Patient does have murmur on exam -Continued outpatient follow-up -Patient currently asymptomatic History of asthma -Continue home inhalers GERD -Continue PPI Seasonal allergies -Continue home Certirzine History of PACs/palpitations -Continue home metoprolol Hypertension -Continue home metoprolol -Continue home lisinopril DVT prophylaxis -Continue subcu heparin CODE STATUS -Full code Charges/Coding Visit Charges Inpatient E&M: 04737 Subs Hosp L2
[2022-09-11] MEDS: Metoprolol(XL)Succ 25 MG Tablet PO (09:08)
[2022-09-11] MEDS: Lisinopril 5 MG Tablet PO (09:09)
[2022-09-11] MEDS: Senna/Docusate Sodium 1 Tablet 2 TABLET PO ×2 (09:09→22:36)
[2022-09-11] MEDS: Pantoprazole Sodium 40 MG Tablet PO (09:09)
[2022-09-11] MEDS: Aspirin E.C. 81 MG Tablet PO ×2 (09:09→17:32)
[2022-09-11] MEDS: Ferrous Sulfate 325 MG Tablet PO (09:09)
[2022-09-11] MEDS: Fluticasone 0.05% 1 SPRAY NASAL.SRY NASAL (09:10)
--- NOTE | 2022-09-11 10:25 | CASEMGMT ---
RN?CM?BAG VALVER?CM?to room to meet with patient for initial transition planning/care coordination?assessment.?RN?CM?introduced self and role at [facility].? Pt voices understanding and consents to?assessment?at this time.? Pt resting in bed in no distress at this time.? Pt is A/O at this time and answers all questions appropriately.?? Care providers, pharmacy, and demographics verified/updated at this time. PCP: Dr Mca Specialists: YOLANDA/Cardiology, Dr Price-emeka in [place] Preferred Pharmacy: [facility] Retail Insurance: [employer] Prescription Benefit:?yes Living Will/HPOA:?Pt has LW and HCPOA, who is her , Juan. LNOK: , Juan. Son, Aneesh. Dtr, Mila Living Arrangements: Lives w/her in 2-story home w/1 step to enter. FFSU. Pt's is currently in [facility] and will be having surgery today. Pt and are both indep @ baseline. Pt does most home mgnt tasks. does most outside work. Transportation:?Pt and both drive. DME: States has the following DME available from prior knee replacement 9 yrs ago, but was not using any prior to hospitalization: shower chair, cane, and walker. Pt states no need for further DME at this time.? HHC/SNF: No hx of either. Pt made aware therapy will evaluate her and will make recommendations. Pt states if SNF is recommended, she would be amenable to going somewhere and made aware a list of options can be provided. She states if able to go home, then would want [facility] and declines wanting list of other C options. CM?to follow for further discharge planning/needs.? Pt voices no further concerns/needs at this time.? Advised pt to ask for?CM?if any further questions/concerns/needs arise.? Voices understanding. PLAN:?TBD by course of treatment and progress w/therapy. SNF vs Home w/HHC ? Ortho C/S pending. PT/OT evals pending. Lea BSN?RN?CM
--- NOTE | 2022-09-11 10:30 | CASEMGMT ---
RN?CM?MECHANICAL INTEGRITY ENGINEER?CM?to room to meet with patient for initial transition planning/care coordination?assessment.?RN?CM?introduced self and role at [facility].? Pt voices understanding and consents to?assessment?at this time.? Pt sitting on edge of bed in no distress at this time.? Pt is A/O at this time and answers all questions appropriately.?? Care providers, pharmacy, and demographics verified/updated at this time. PCP: Dr Rangel Specialists: [facility]/Cardiology Preferred Pharmacy: [facility] Retail Insurance: [employer] Prescription Benefit:?yes Living Will/HPOA:?Pt has LW and HCPOA, who is his , Amalia LNOK: , Amalia. Son, Aneesh. Dtr, Mila Living Arrangements: Lives w/his in 2-story home w/1 step to enter. FF. Pt's is currently a patient @ [facility]. independent @ baseline. Transportation:?Pt drives DME: Pt has a functioning glucometer w/supplies and uses no AD to ambulate @ baseline. He denies needs. HHC/SNF: No hx of either and no needs identified at this time. PT/OT odalis pending and therapy plans to work w/pt after surgery. Pt states he has went to [facility] and met w/therapy and educated on exercises he can do at home. He states he has been doing them as instructed. CM?to follow for further discharge planning/needs.? Pt voices no further concerns/needs at this time.? Advised pt to ask for?CM?if any further questions/concerns/needs arise.? Voices understanding. PLAN:?Home PT/OT odalis pending. Lea MONTEMAYORN?RN?CM
--- NOTE | 2022-09-11 11:05 | PCM.CONS.GEN ---
Assessment & Plan Assessment/Plan (1) Ankle fracture, lateral malleolus, closed: (2) Displaced fracture of lateral condyle of left tibia: PLAN: Plan Plan of care was discussed and reviewed at length with the patient. Based on radiographic findings we feel that conservative nonsurgical treatment measures are most appropriate for the patient at this time. Risk of nonunion malunion discussed and reviewed at length. Risk associated with posttraumatic arthritis discussed and reviewed at length. I would recommend she maintain a nonweightbearing status of the left lower extremity at this time. She is currently well-padded and fit with a posterior long-leg splint and sugar-tong splint we will maintain the splint at this time. Keep it clean dry and covered. Rest ice elevate for any pain or swelling. Continue pain medications as prescribed as needed. We discussed the indications for the patient continuing to maintain her orthopedic care with her orthopedic surgeon in [place]. She understands that she may have to delay/reschedule her upcoming left total knee arthroplasty depending on her level of healing and rehabilitation status. She did wish to follow with [facility] for her current acute injuries. Due to social reasons she will need to be [facility] a [facility] facility for [facility]. She should follow-up with [facility] in 7 to 10 days for reassessment with repeat x-rays. Please do not hesitate to contact us with any further orthopedic concerns HPI Consult Data Date of Consult: 09/11/22 HPI Narrative Reason for Consultation: Left ankle/left knee fracture HPI Narrative: EDDY MCDONALD, is a 71 F who was visiting her in the hospital yesterday sep 10 2022. He is was admitted to the hospital and scheduled to have a surgical procedure the following day. She was walking down the hallway of [facility] with her grandson who ran ahead of her. She was trying to increase her speed to catch up. She tripped fell and twisted her ankle and knee on the left side. She did not ambulate with an assistive device prior to this injury. The left ankle was completely normal and pain-free prior to the injury. She does have osteoarthritis in the left knee for which she was scheduled to undergo a left total knee arthroplasty November 02, [address] Taylor of [place]. She does have a previous history of right total knee arthroplasty. She did not injure this with the fall. There was no head injury or loss of consciousness with her fall. She was evaluated at [facility] emergency department had x-rays which revealed a left ankle fracture and a left knee tibial plateau fracture. She was placed in a long posterior splint with sugar-tong splint on the left leg and admitted to the hospital for social reasons as she is unable to care for herself with the necessity for a nonweightbearing status and her being in the hospital not being able to help her. The pain medicines that she is receiving are currently helping her. She denies a history of DVT or pulmonary embolism. No hip pain at this time. [facility] Medical History Abnormal EKG Aortic stenosis Asthma Atrial premature depolarization COPD (chronic obstructive pulmonary disease) Lung nodules Nonrheumatic aortic (valve) stenosis TAYLOR (obstructive sleep apnea) Palpitations Premature atrial contraction Home Medications albuterol sulfate 90 mcg/actuation aerosol inhaler (ProAir HFA) 1 puff inhalation Q6H 06/20/17 [History Last Taken Unknown] aspirin 81 mg tablet,delayed release 81 mg PO QDAY 06/20/17 [History Last Taken Unknown] cetirizine 10 mg capsule (Zyrtec) 10 mg PO QDAY PRN Allergies 06/20/17 [History Last Taken Unknown] fluticasone propionate 50 mcg/actuation nasal spray,suspension (Flonase Allergy Relief) 1 spray intranasal QDAY PRN Allergies 06/20/17 [History Last Taken Unknown] omega-3 fatty acids 1,000 mg capsule (Fish Oil Concentrate) 1,000 mg PO QDAY 06/20/17 [History Last Taken Unknown] lisinopril 5 mg tablet 5 mg PO DAILY 09/01/19 [History Last Taken Unknown] ferrous sulfate 325 mg (65 mg iron) tablet 325 mg PO DAILY 08/29/21 [History Last Taken Unknown] pantoprazole 40 mg tablet,delayed release 40 mg PO DAILY 08/29/21 [History Last Taken Unknown] metoprolol succinate 25 mg tablet,extended release 24 hr (Toprol XL) 25 mg PO QDAY #90 tabs 05/22/22 [Rx Last Taken Unknown] albuterol sulfate 90 mcg/actuation aerosol inhaler (ProAir HFA) 1 inh inhalation Q6H PRN Shortness Of Breath 09/10/22 [History Last Taken Unknown] fluticasone 250 mcg-salmeterol 50 mcg/dose blistr powdr for inhalation (Wixela Inhub) 1 inh inhalation Q12H 09/10/22 [History Last Taken Unknown] Allergy/AdvReac Type Severity Reaction Status Date / Time acetaminophen [From Percocet] AdvReac Intermediate N/V and Verified 09/10/22 14:28 Dizziness codeine AdvReac Intermediate Abdominal Verified 09/10/22 14:28 Pain hydrocodone [From Vicodin] AdvReac Intermediate N/V and Verified 09/10/22 14:28 Dizziness oxycodone [From Percocet] AdvReac Intermediate N/V and Verified 09/10/22 14:28 Dizziness Family History Father Heart disease Mother Heart disease Surgical History H/O nasal polypectomy History of total right knee replacement Social History Smoking Status: Current every day smoker tobacco type: cigarettes alcohol intake: never substance use type: does not use ROS ROS Narrative Review of systems were discussed at length with the patient all pertinent positives and negatives are documented within the consult note Physical Exam Narrative Upon entering the room there is a pleasant obese female sitting comfortably at rest in the bedside chair. She has just made a transfer with physical therapy. She is alert and oriented x3. No acute distress at rest. Breathing easily without respiratory distress. Left hip without deformity. Left hip without tenderness. Gentle mobility left hip without pain or restriction. Right hip without deformity or tenderness right hip mobility without pain or restriction. Right knee inspection is with well-healed scar from previous joint replacement surgery. No calf pain on the right side. Intact long-leg fiberglass splint with sugar-tong extension around the ankle well fitted without evidence of pressure points or breakdown. There is tenderness to palpation over the lateral aspect of the left knee. Patient has difficulty performing a straight leg raise on the left against gravity but is able to do so for a brief moment and extensor mechanism is intact. Large knee joint effusion present. Range of motion at the left knee deferred due to pain and long-leg splint. Patient is able to flex and extend the toes. Sensation intact light touch capillary refill less than 3 seconds neurovascularly intact. X-rays documented below of left ankle and left knee September 10, 2022 were personally reviewed discussed and reviewed at length with the patient. All of her questions were answered. Left ankle images are with osteopenic bone changes and oblique nondisplaced Cody a lateral malleolus fracture without ankle mortise widening or increased medial clear space. Additionally appears to be a minimally displaced posterior malleolus fragment Left knee x-rays are with large knee joint effusion and degenerative changes osteopenic bone changes and mildly depressed lateral tibial plateau fracture without dislocation lytic or blastic lesions Lab / Micro Data Result Diagrams: 09/11/22 05:34 09/11/22 05:34 Labs: Laboratory Results - last 24 hr 09/10/22 16:40: PT 13.0, INR 1.0 09/10/22 16:40: WBC 7.2, RBC 4.14 L, Hgb 12.8, Hct 39.5, MCV 95.4, MCH 30.9, MCHC 32.4, RDW Std Deviation 46.6 H, RDW Coeff of Yessi 13.2, Plt Count 260, MPV 9.6, Immature Gran % (Auto) 0.300, Neut % (Auto) 67.4, Lymph % (Auto) 20.2, [place] % (Auto) 6.4, Eos % (Auto) 4.7, Baso % (Auto) 1.0, Absolute Neuts (auto) 4.9, Absolute Lymphs (auto) 1.46, Nucleated RBC % 0 09/10/22 16:40: Sodium 141, Potassium 4.2, Chloride 109 H, Carbon Dioxide 23.0, Anion Gap 9, BUN 19 H, Creatinine 1.37 H, Estim Creat Clear Calc 31.61, Est GFR (MDRD) Af Amer 49 L, Est GFR (MDRD) Non-Af 40 L, BUN/Creatinine Ratio 13.9, Glucose 105, Calcium 8.9 09/11/22 05:34: WBC 6.5, RBC 3.55 L, Hgb 11.4 L, Hct 33.8 L, MCV 95.2, MCH 32.1 H, MCHC 33.7, RDW Std Deviation 46.3 H, RDW Coeff of Yessi 13.2, Plt Count 189, MPV 9.8, Immature Gran % (Auto) 0.200, Neut % (Auto) 69.5, Lymph % (Auto) 18.7 L, [place] % (Auto) 8.5, Eos % (Auto) 2.3, Baso % (Auto) 0.8, Absolute Neuts (auto) 4.5, Absolute Lymphs (auto) 1.21, Nucleated RBC % 0 09/11/22 05:34: Sodium 136, Potassium 4.3, Chloride 106, Carbon Dioxide 26.0, Anion Gap 4 L, BUN 18, Creatinine 1.08 H, Estim Creat Clear Calc 40.10, Est GFR (MDRD) Af Amer 64, Est GFR (MDRD) Non-Af 53 L, BUN/Creatinine Ratio 16.7, Glucose 119 H, Calcium 8.4 L Radiology Impression Ankle X-Ray 09/10/22 15:45 IMPRESSION: Nondisplaced lateral malleolar fracture. Posterior tibial fracture. Electronically Signed: Capri Washington MD at 16:18 EDT Reading Location ID and State: Sommer Pandey MD Tel , Service support , Knee X-Ray 09/10/22 15:45 IMPRESSION: Large joint effusion. Suspect mild depression of the lateral tibial plateau, age indeterminate. Consider CT of the knee to exclude acute fracture. Electronically Signed: Capri Washington MD at 16:10 EDT Reading Location ID and State: Sommer Pandey MD Tel , Service support ,
[2022-09-11] MEDS: proCHLORPERazine 10 MG/2 ML Vial 5 MG IV (12:00)
--- NOTE | 2022-09-11 14:31 | CASEMGMT ---
Power of Allied Health Teacher and Living Will verified. Patient reports she has documents at home. Patient asked to bring documents in to be put into file.
--- NOTE | 2022-09-11 14:32 | CASEMGMT ---
Addendum entered by Colin Eisenberg 09/11/22 15:38: A list of [facility] providers including quality and resource use data and consistent with the patient's preferred geographical region, medical needs and insurance network from the [facility] Guide were provided. Patient indicated that her first choice was TCU and second choice is [facility] in [place]. Discharge planning division superintendent, Noelle Osuna to start referrals. Original Note: Sw met with patient, introduced self and explained sw role during admission. Sw verified patient has POA and Living Will. Patient states she has copies of documents at home. Sw asked patient to have documents brought in so information can be filed in patient chart. Patient expressed understanding. Sw completed SDOH with patient, patient denies need for community resources at this time. Sw asked patient if she is open to going to nursing facility when ready for discharge and patient receptive to this discharge plan. Colin Eisenberg, MEDICAL DOSIMETRIST, COMMUNITY SERVICE SPECIALIST
--- NOTE | 2022-09-11 14:40 | CASEMGMT ---
Discharge Planning SNF list created and given to SW. Noelle Osuna
--- NOTE | 2022-09-11 15:31 | CASEMGMT ---
Sw followed up with patient to discuss SNF. Patient states that her first choice for SN is [facility]. Second choice is [facility] in [place]. Colin Eisenberg, PRINCIPAL PLANNER, CLOTH SHRINKER
--- NOTE | 2022-09-11 15:48 | CASEMGMT ---
Discharge Planning Referral sent to [facility]. Noelle Osuna
--- NOTE | 2022-09-11 16:02 | CASEMGMT ---
Discharge Planning Referral was sent to [facility] via [facility]. Noelle Osuna
[2022-09-11] MEDS: Albuterol 2.5 MG/3 ML VIAL.NEB. INHALATION (19:30)
[2022-09-11] MEDS: 0.9% Saline Lock 10 ML Syringe IV (22:47)
[2022-09-12] VITALS (7 sets, daily range): BP systolic 93–108; BP diastolic 58–64; PULSE 78–87; RESP 16–19; TEMP 36.8–37.3; O2SAT 92–94
[2022-09-12] MEDS: Acetaminophen 500 MG Tablet 1000 MG PO (06:14)
[2022-09-12] MEDS: Heparin Injection (Vial) 5,000 UNIT/ML VIAL 5000 UNIT SC ×2 (06:17→13:40)
[2022-09-12] MEDS: Albuterol 2.5 MG/3 ML VIAL.NEB. INHALATION ×2 (06:53→13:55)
[2022-09-12] MEDS: Budesonide Respules 0.5 MG/2 ML AMPUL.NEB. INHALATION (06:53)
[2022-09-12 07:38] LABS: Anion Gap 6 (5-15); BUN 14 mg/dL (7-18); BUN/Creat Ratio 15.2 RATIO (10-20); Chloride 104 mmol/L (98-107); Creatinine, Serum 0.92 mg/dL (0.55-1.02); EST Glomerular Filtration Rate 64 mL/min (>60); Est Glom Filt Rate - Afr Amer 77 mL/min (>60); Estimated Creatinine Clearance 47.07 ml/min; Glucose 93 mg/dL (74-106); Magnesium 1.8 mg/dL (1.6-2.6); Phosphorus 3.2 mg/dL (2.5-4.9); Potassium 4.1 mmol/L (3.5-5.1); Sodium Level 135 mmol/L (136-145)
[2022-09-12] MEDS: Ferrous Sulfate 325 MG Tablet PO (08:22)
[2022-09-12] MEDS: Metoprolol(XL)Succ 25 MG Tablet PO (08:22)
[2022-09-12] MEDS: Senna/Docusate Sodium 1 Tablet 2 TABLET PO (08:22)
[2022-09-12] MEDS: Aspirin E.C. 81 MG Tablet PO ×2 (08:22→17:22)
[2022-09-12] MEDS: Lisinopril 5 MG Tablet PO (08:22)
[2022-09-12] MEDS: Pantoprazole Sodium 40 MG Tablet PO (08:22)
[2022-09-12] MEDS: Fluticasone 0.05% 1 SPRAY NASAL.SRY NASAL (08:23)
--- NOTE | 2022-09-12 09:33 | CASEMGMT ---
Discharge Planning Patient has been accepted by [facility]. SW notified. Noelle Osuna
[2022-09-12] MEDS: traMADol 50 MG Tablet 100 MG PO (11:58)
--- NOTE | 2022-09-12 13:22 | PCM.TXEXTCAR ---
Diet Diet Order/Speech Therapy: 09/10/22 19:05 Diet: Cardiac - Heart Healthy Food consistency:: Regular Liquid Consistency:: Regular/Thin Routine Orders/Code Status O2 Frequency: PRN Keep PO Greater than or Equal to (%): 92 Routine Lab Work: CBC (in 1 week) and BMP (In 1 week) Code Status: Full Code Wound(s) lle: Wound Type: fracture Suggestions for Active Care Change Position every (hours): 2 Therapies Weight Bearing: Non weight bearing Extremity Affected:: Left Lower Physical Therapy: Eval and Treat Occupational Therapy: Eval and Treat Problem/Diagnosis (1) Fall: Status: Acute Code(s): W19.XXXA - Unspecified fall, initial encounter (2) Ankle fracture, lateral malleolus, closed: Status: Acute Code(s): S82.63XA - Displaced fracture of lateral malleolus of unspecified fibula, initial encounter for closed fracture (3) Posterior tibial plateau fracture: Status: Acute Code(s): S82.143A - Displaced bicondylar fracture of unspecified tibia, initial encounter for closed fracture (4) Elevated serum creatinine: Status: Acute Code(s): R79.89 - Other specified abnormal findings of blood chemistry Allergies/Procedures Done in Hospital Allergies acetaminophen [From Percocet] Adverse Reaction (Intermediate, Verified 09/10/22 14:28) N/V and Dizziness codeine Adverse Reaction (Intermediate, Verified 09/10/22 14:28) Abdominal Pain hydrocodone [From Vicodin] Adverse Reaction (Intermediate, Verified 09/10/22 14:28) N/V and Dizziness oxycodone [From Percocet] Adverse Reaction (Intermediate, Verified 09/10/22 14:28) N/V and Dizziness Procedures: - (X-ray left knee/x-ray left ankle) Type of Care/Length of Stay Estimated LOS: Convalescent Care Less Than 30 days Type of Care Needed: Skilled Rehab Potential: Good Prognosis: Good Additional Orders/Day of Discharge Day of Discharge: 09/12/22 Discharge Plan Admission Admit Date/Time: 09/10/22 17:52 Attending Provider: Lauren Duenas Primary Care Provider: Mari Mac Consulting Providers: Aidan Pryor ; Keith Jackson Discharge Orders/Prescriptions Prescriptions: No Action albuterol sulfate [ProAir HFA] 90 mcg/actuation HFA aerosol inhaler 1 puff INHALATION Q6H aspirin 81 mg tablet,delayed release (DR/EC) 81 mg PO QDAY omega-3 fatty acids [Fish Oil Concentrate] 1,000 mg capsule 1,000 mg PO QDAY cetirizine [Zyrtec] 10 mg capsule 10 mg PO QDAY PRN (Reason: Allergies) fluticasone propionate [Flonase Allergy Relief] 50 mcg/actuation spray,suspension 1 spray INTRANASAL QDAY PRN (Reason: Allergies) lisinopril 5 mg tablet 5 mg PO DAILY pantoprazole 40 mg tablet,delayed release (DR/EC) 40 mg PO DAILY ferrous sulfate 325 mg (65 mg iron) tablet 325 mg PO DAILY fluticasone propion-salmeterol [Wixela Inhub] 250-50 mcg/dose Blister With Device 1 inh INHALATION Q12H albuterol sulfate [ProAir HFA] 90 mcg/actuation Hfa Aerosol Inhaler 1 inh INHALATION Q6H PRN (Reason: Shortness Of Breath) metoprolol succinate [Toprol XL] 25 mg tablet extended release 24 hr 25 mg PO QDAY Qty: 90 3RF Referrals / Follow Up: Mari Mac DO [Primary Care Provider] -
--- NOTE | 2022-09-12 13:23 | DS.PCM_ITS ---
Providers Date of Admission: 09/10/22 Date of Discharge: 09/12/22 Primary Care Physician: Dr. Mari Mac, DO Consultations 09/10/22 18:13 Consult: Orthopedics Routine Consulting Provider: Aidan Pryor Reason for Consult: Left tibial plateau and lateral malleolar fracture EMERGENT Consult: No MD Notified: Yes Date Notified: 09/10/22 Time Notified: 18:14 Method of Notification: ED Physician Initiated Reason For Visit: LEFT ANKLE & KNEE FRACTURE WITH EFFUSION Diagnosis Discharge Diagnosis (1) Fall: Status: Acute Code(s): W19.XXXA - Unspecified fall, initial encounter (2) Ankle fracture, lateral malleolus, closed: Status: Acute Code(s): S82.63XA - Displaced fracture of lateral malleolus of unspecified fibula, initial encounter for closed fracture (3) Posterior tibial plateau fracture: Status: Acute Code(s): S82.143A - Displaced bicondylar fracture of unspecified tibia, initial encounter for closed fracture (4) Elevated serum creatinine: Status: Acute Code(s): R79.89 - Other specified abnormal findings of blood chemistry Medications at Discharge Home Medications albuterol sulfate 90 mcg/actuation aerosol inhaler (ProAir HFA) 1 puff inhalation Q6H 06/20/17 aspirin 81 mg tablet,delayed release 81 mg PO QDAY 06/20/17 cetirizine 10 mg capsule (Zyrtec) 10 mg PO QDAY PRN Allergies 06/20/17 fluticasone propionate 50 mcg/actuation nasal spray,suspension (Flonase Allergy Relief) 1 spray intranasal QDAY PRN Allergies 06/20/17 omega-3 fatty acids 1,000 mg capsule (Fish Oil Concentrate) 1,000 mg PO QDAY 06/20/17 lisinopril 5 mg tablet 5 mg PO DAILY 09/01/19 ferrous sulfate 325 mg (65 mg iron) tablet 325 mg PO DAILY 08/29/21 pantoprazole 40 mg tablet,delayed release 40 mg PO DAILY 08/29/21 metoprolol succinate 25 mg tablet,extended release 24 hr (Toprol XL) 25 mg PO QDAY #90 tabs 05/22/22 fluticasone 250 mcg-salmeterol 50 mcg/dose blistr powdr for inhalation (Wixela Inhub) 1 inh inhalation Q12H 09/10/22 acetaminophen 500 mg tablet 1,000 mg PO Q8 #0 tabs 09/12/22 aspirin 81 mg tablet,delayed release 81 mg PO BIDCM #0 tabs 09/12/22 heparin (porcine) 5,000 unit/mL injection solution 5,000 unit subcut Q8 #0 mL 09/12/22 sennosides 8.6 mg-docusate sodium 50 mg tablet (Stool Softener-Stimulant Laxative) 2 tab PO BID #0 tabs 09/12/22 tizanidine 2 mg tablet 4 mg PO Q8H PRN PRN Muscle Spasms/Musculoskeletal Pain #0 tabs 09/12/22 tramadol 50 mg tablet 100 mg PO Q6H PRN PRN 4-10 #0 tabs 09/12/22 Hospital Course Procedures - (X-rays left knee/x-rays left ankle) Summary of Care Provided Minutes Spent on Discharge: 37 Hospital Course: Ms Pedro is a 71-year-old white female who was visiting her in the hospital and unfortunately fell forward in the hallway onto her left knee and ankle.? After the fall she had severe pain and difficulty bearing weight and was taken to the emergency department and x-rays there revealed a large joint effusion with suspected mild depression fracture of the lateral tibial plateau and a nondisplaced lateral malleolar fracture as well as a posterior tibial fracture.? The emergency department consulted the orthopedic surgeon who advised a long-leg splint and nonweightbearing status on extremity. Orthopedic surgery evaluated the patient while she was hospitalized and recommended conservative nonsurgical treatment. They recommended ongoing nonweightbearing in the left lower extremity with maintenance of the current splint, rest, ice, elevation, and continued as needed pain medications. She was understanding that she may need to delay her left total knee arthroplasty and plans on discussing this with her primary orthopedic surgeon at [facility]. She did wish to follow-up with [facility] for her current acute injuries and will need to be seen in the next 7 to 10 days for reassessment and repeat x-rays. She was maintained on aspirin 81 mg p.o. twice daily for 30 days per orthopedic surgery for DVT prophylaxis. I would also continue subcu heparin while she is at the nursing facility. Her serum creatinine was mildly elevated upon presentation but normalized during her hospital course. She was seen by physical and Occupational Therapy and deemed appropriate for ongoing rehab services. She was accepted by [facility] for ongoing physical and occupational therapy and precertification was obtained on 09/12/2022. The patient was discharged in stable condition on 09/12/2022. Discharge diagnoses: Left lateral malleolar fracture-nondisplaced Posterior tibial plateau fracture-nondisplaced Mechanical fall Elevated serum creatinine-resolved History of aortic stenosis Asthma GERD Seasonal allergies History of PACs History of palpitations Hypertension Physical Exam Const alert, oriented x3, no apparent distress, healthy appearing and well nourished Constitutional Narrative: Obese, white female, sitting up in bed, watching television, appears comfortable and nontoxic General Appearance: cooperative, comfortable, well kempt and well developed Orientation / Consciousness: awake, oriented to person, oriented to place and oriented to time Exam Limitations: no limitations Nutritional Appearance: obese HEENT normocephalic, head/scalp atraumatic, hearing grossly normal bilaterally and moist oral mucous membranes HEENT Narrative: Mallampati 3, no thrush, dentition is fair Eyes PERRL, EOMs intact bilaterally and conjunctivae normal Eyes Narrative: No scleral icterus Neck no lymphadenopathy and supple Neck Narrative: Trachea midline, no thyroid enlargement Resp normal respiratory effort, no retractions, no use of accessory muscles and clear to auscultation bilaterally Auscultation: Negative for crackles, rhonchi or wheezes Cardio regular rate, regular rhythm, S1 normal heart sound, S2 normal heart sound, no murmurs, no rub, no gallops and no clicks GI normal to inspection, nondistended, normoactive bowel sounds and soft to palpation Extremity no clubbing, cyanosis or edema Extremity Narrative: Cap refill in left lower extremity is 2+, pedal pulses 2+ on right, splint in place on left lower extremity Skin no rashes or lesions noted, no wounds, skin turgor normal and no jaundice Neuro oriented x3, CN's II-XII intact bilaterally, no focal motor deficits and no sensory deficits noted Neuro Narrative: Decreased movement left lower extremity due to fractures however no focal deficits elsewhere Speech: speech normal Psych affect normal Psych Narrative: Pleasant, appropriate Weight / BMI Weight Weight: 89.1 kg Body Mass Index (BMI) 34.7 ABG / Lab / Microbiology Data Result Diagrams: 09/11/22 05:34 09/12/22 06:30 Laboratory: Laboratory Results - last 24 hr 09/12/22 06:30: Sodium 135 L, Potassium 4.1, Chloride 104, Carbon Dioxide 25.0, Anion Gap 6, BUN 14, Creatinine 0.92, Estim Creat Clear Calc 47.07, Est GFR (MDRD) Af Amer 77, Est GFR (MDRD) Non-Af 64, BUN/Creatinine Ratio 15.2, Glucose 93, Calcium 8.0 L, Phosphorus 3.2, Magnesium 1.8 Meaningful Use Info Meaningful Use Diagnoses (Choose all that apply): None applicable Discharge Plan Admission Admit Date/Time: 09/10/22 17:52 Primary Reason for Your Visit: Fall/L LE Pain Attending Provider: Lauren Duenas Primary Care Provider: Mari Mac Consulting Providers: Aidan Pryor ; Keith Jackson Instructions Additional Instructions / Restrictions: 1. Please call your orthopedic surgeon at [facility] to discuss your total knee replacement and update him on your current status Discharge Orders/Prescriptions Prescriptions: New sennosides-docusate sodium [Stool Softener-Stimulant Laxat] 8.6-50 mg Tablet 2 tab PO BID Qty: 0 0RF aspirin 81 mg Tablet,Delayed Release (Dr/Ec) 81 mg PO BIDCM Qty: 0 0RF Rx Instructions: for 1 month tramadol 50 mg Tablet 100 mg PO Q6H PRN PRN (Reason: 4-10) Qty: 0 0RF acetaminophen 500 mg Tablet 1,000 mg PO Q8 Qty: 0 0RF heparin (porcine) 5,000 unit/mL Solution 5,000 unit subcut Q8 Qty: 0 0RF tizanidine 2 mg Tablet 4 mg PO Q8H PRN PRN (Reason: Muscle Spasms/Musculoskeletal Pain) Qty: 0 0RF Continued albuterol sulfate [ProAir HFA] 90 mcg/actuation HFA aerosol inhaler 1 puff INHALATION Q6H aspirin 81 mg tablet,delayed release (DR/EC) 81 mg PO QDAY omega-3 fatty acids [Fish Oil Concentrate] 1,000 mg capsule 1,000 mg PO QDAY cetirizine [Zyrtec] 10 mg capsule 10 mg PO QDAY PRN (Reason: Allergies) fluticasone propionate [Flonase Allergy Relief] 50 mcg/actuation spray,suspension 1 spray INTRANASAL QDAY PRN (Reason: Allergies) lisinopril 5 mg tablet 5 mg PO DAILY pantoprazole 40 mg tablet,delayed release (DR/EC) 40 mg PO DAILY ferrous sulfate 325 mg (65 mg iron) tablet 325 mg PO DAILY fluticasone propion-salmeterol [Wixela Inhub] 250-50 mcg/dose Blister With Device 1 inh INHALATION Q12H metoprolol succinate [Toprol XL] 25 mg tablet extended release 24 hr 25 mg PO QDAY Qty: 90 3RF Discontinued albuterol sulfate [ProAir HFA] 90 mcg/actuation Hfa Aerosol Inhaler 1 inh INHALATION Q6H PRN (Reason: Shortness Of Breath) Referrals / Follow Up: Mari Mac DO [Primary Care Provider] - Within 2 Weeks Aidan Pryor MD [Med Staff - Active Staff] - Within 1 Week (call for appt) Disposition Disposition (needs filled in before D/C Order can be placed): Retirement Facility Charges/Coding Visit Charges Inpatient E&M: 97206 SNF Disch >30 Min
--- NOTE | 2022-09-12 15:08 | CASEMGMT ---
Precert approval received for patient to be transferred to [facility]. Patient informed and she stated she would notify family. Patient is medically ready for discharge. 7000 and discharge orders sent to [facility]. Transportation arranged with Physicians for 5:00 pm. Nurse and patient informed of shredder picker time. Colin Eisenberg, TILE SETTER SUPERVISOR, OFFICE MESSENGER HELPER
--- NOTE | 2022-09-12 15:31 | NURSING ---
this RN called report to [facility], report given to Gayle at 1530, pt getting picked up and transferred at 1700
--- NOTE | 2022-09-13 15:08 | CASEMGMT ---
Discharge Planning Patient was accepted by [facility]. Referral was sent after TCU declined. Noelle Osuna
--- NOTE | 2022-09-13 15:18 | CASEMGMT ---
Social Work Per patient's 's nurse, patient's son Aneesh, left a voicemail and was requesting to speak with SW regarding patient's placement. SW contacted patient's son and introduced herself and role as [facility] herbarium worker. SW reviewed patient's chart and explained to patient's son this SW was not the SW involved with patient's care. Patient's son explained he and patient spoke with SW on Sunday and were planning for [place] [facility], patient's son confused why patient isn't at [facility]. Per discharge branch assistant, TCU had no beds available and [facility] was patient's second choice. SW explained the administrator social welfare that worked with the patient will be available tomorrow if he had further questions. SW also encouraged patient's son to talk to patient about alternative choices and if patient agrees to changing SNF they can work with the SW at their facility to find alternate SNFs in [place]. Patient's son voiced understanding. China العلي MSW, JACQUELYN
--- NOTE | 2022-09-14 16:28 | CASEMGMT ---
Social Work SW contacted by patient's son inquiring about a list of SNFs near [place] in network with patient's insurance and requested a list be sent to his email: . MIGUELITO emailed list of SNFs from patient's insurance website within 20 miles of [place], [place] as well as a link for Medicare.gov to review and compare star ratings for SNFs. MIGUELITO encouraged patient's son to further discuss SNF options with SW at [facility]. China NORMAN, JACQUELYN
== END 2022-09-12 17:49 | disposition skilled nursing facility (03) | DRG 563 ==
LOC: ED 16:48 → MS3 17:36
PROVIDERS: Nurse Practitioner; Admitting Provider Internal Medicine; Emergency Provider Student in an Organized Health Care Education/Training Program; PCP Family Medicine; Visit Provider Internal Medicine
DX: S82.145A Nondisplaced bicondylar fracture of left tibia, initial encounter for closed fracture (principal); J44.9 Chronic obstructive pulmonary disease, unspecified; I50.32 Chronic diastolic (congestive) heart failure; I11.0 Hypertensive heart disease with heart failure; E66.01 Morbid (severe) obesity due to excess calories; F17.210 Nicotine dependence, cigarettes, uncomplicated; J30.2 Other seasonal allergic rhinitis; K21.9 Gastro-esophageal reflux disease without esophagitis; S82.65XA Nondisplaced fracture of lateral malleolus of left fibula, initial encounter for closed fracture; W18.39XA Other fall on same level, initial encounter; I35.0 Nonrheumatic aortic (valve) stenosis; M17.12 Unilateral primary osteoarthritis, left knee; G47.33 Obstructive sleep apnea (adult) (pediatric); I49.3 Ventricular premature depolarization; R79.89 Other specified abnormal findings of blood chemistry; R91.1 Solitary pulmonary nodule; Z68.34 Body mass index [BMI] 34.0-34.9, adult; Z79.01 Long term (current) use of anticoagulants; Z79.51 Long term (current) use of inhaled steroids; Z79.82 Long term (current) use of aspirin; Z79.899 Other long term (current) drug therapy
CPT/HCPCS: 29505; 36415; 73564; 73610; 80048; 83735; 84100; 85025; 85610; 87426; 94640; 94668; 96361; 96372; 96374; 96375; 97162; 97166; 99221; 99252; 99284; J7120; A4216; G0378; G0463; J2405

== ENCOUNTER → 2023-01-19 | Outpatient (CLI) | payer MEDICARE, SELFPAY ==
--- NOTE | 2023-01-19 13:41 | ECHOD_ITS ---
Reason For Study: Procedure This was a 2D Doppler, Color Flow transthoracic echocardiogram. Exam performed in department. Left Ventricle Normal LV size. Left ventricular systolic function is normal. The estimated ejection fraction is 55 %. Stage 1 diastolic dysfunction. No regional wall motion abnormalities noted. Right Ventricle Normal RV size. Normal systolic function. Atria Normal left atrium. Normal right atrium. Aortic Valve Trisinus/trileaflet aortic valve. Moderate focal aortic valve calcification. Peak aortic valve gradient 62 mmHg. Mean aortic valve gradient 39.5 mmHg. Moderate to severe aortic stenosis. Mild (1+) aortic valve insufficiency. Great Vessels Normal aortic root. The pulmonary artery is normal size. Normal inferior vena cava. Pericardium/Pleural No pericardial effusion. MMode/2D Measurements & Calculations LVIDd: 4.7 cm IVSd: 0.97 cm LVOT diam: 1.7 cm LVIDs: 3.3 cm LVPWd: 1.0 cm RVDd: 3.3 cm FS: 29.9 % LVOT area: 2.2 cm2 LAV(MOD-bp): 59.0 ml SV(MOD-sp4): 30.7 ml LVAd ap4: 25.1 cm2 LAV(MOD-bp) Indexed: 31.5 ml/m2 LVLd ap4: 7.5 cm LAV(MOD-sp2): 73.0 ml EDV(MOD-sp4): 68.0 ml LAV(MOD-sp4): 45.1 ml EDV(sp4-el): 71.9 ml LVAs ap4: 16.9 cm2 LVLs ap4: 6.4 cm ESV(MOD-sp4): 37.3 ml ESV(sp4-el): 37.9 ml EF(MOD-sp4): 45.2 % EF(sp4-el): 47.2 % SV(sp4-el): 33.9 ml LA A4 area: 16.3 cm2 LA dimension(2D): 3.9 cm RA A4 area: 14.4 cm2 Time Measurements MV dec time: 0.20 sec Doppler Measurements & Calculations MV E max rosendo: 106.7 cm/sec Lat Peak E' Rosendo: 6.9 cm/sec Med Peak E' Rosendo: 6.7 cm/sec MV A max rosendo: 124.2 cm/sec E/E' lat: 15.5 E/E' med: 15.9 MV E/A: 0.86 MV V2 max: 129.4 cm/sec MV dec slope: 535.4 cm/sec2 Ao V2 max: 393.5 cm/sec MV max P.7 mmHg Ao max P.0 mmHg MV V2 mean: 81.8 cm/sec Ao V2 mean: 301.5 cm/sec MV mean P.0 mmHg Ao mean P.5 mmHg MV V2 VTI: 41.3 cm Ao V2 VTI: 101.3 cm MVA(VTI): 1.7 cm2 AV (velocity ratio): 0.32 AZ(I,D): 0.70 cm2 AZ(V,D): 0.66 cm2 AI max rosendo: 413.2 cm/sec LV V1 max: 117.4 cm/sec SV(LVOT): 70.9 ml AI max P.6 mmHg LV V1 max P.5 mmHg AI dec slope: 241.5 cm/sec2 LV V1 mean P.4 mmHg AI P1/2t: 501.1 msec LV V1 mean: 86.4 cm/sec LV V1 VTI: 32.2 cm PA V2 max: 93.1 cm/sec PA V2 mean: 70.6 cm/sec ECHO/Echo Complete Interpretation Summary Normal LV size. Left ventricular systolic function is normal. The estimated ejection fraction is 55 %. Stage 1 diastolic dysfunction. Moderate focal aortic valve calcification. Mean aortic valve gradient 39.5 mmHg. Mild (1+) aortic valve insufficiency. Moderate to severe aortic stenosis. Ordering Physician: Bernardo Baker Referring Physician: Bernardo Baker Performed By: Debbie Hoskins RCS
== END | disposition home or self-care (01) ==
LOC: CVS 13:33
PROVIDERS: PCP Family Medicine; Referring Provider Nurse Practitioner Family; Visit Provider Nurse Practitioner Family
DX: I35.0 Nonrheumatic aortic (valve) stenosis (principal); I49.1 Atrial premature depolarization; R00.2 Palpitations
CPT/HCPCS: 93306

== ENCOUNTER 2023-02-13 06:39 | Day surgery (SDC) | payer MEDICARE, SELFPAY ==
--- NOTE | 2023-01-29 13:00 | DS.PCM_ITS ---
Discharge Summary Date of Admission: 02/13/23 Summary: This is a 72-year-old white female who presents today to the Character Artist for a left heart catheterization. She has a history of underlying aortic valve stenosis, palpitations, and PACs. She recently underwent an echocardiogram on 01/19/2023 that showed ejection fraction of 55% and moderate to severe aortic valve stenosis with a peak aortic valve gradient of 62 mmHg, mean aortic valve gradient of 39.5 mmHg, and aortic valve area 0.7/0.66 cm?. She will proceed with heart catheterization to define coronary artery anatomy to guide further valvular work-up. She denies chest, arm, jaw, or neck discomfort. She states palpitations. This is intermittent and short lasting. This resolved after stopping the tramadol. She denies bilateral lower extremity edema, but states left lower extremity edema. She denies claudication. She denies shortness of breath with activity, shortness of breath at rest, orthopnea, or PND. She denies chronic cough. She denies significant, sudden weight gain. She denies lightheadedness, dizziness, near-syncope, or syncope. She denies blood in urine, blood in stool, or epistaxis. He denies fever with chills. She denies myalgia. She states fatigue that she attributes to increase in activity with PT. Her exercise level has remained stable. She stopped Lisinopril due to low blood pressure. 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 Required: No Is patient in pain?: No Allergies acetaminophen [From Percocet] Adverse Reaction (Intermediate, Verified 01/02/23 08:52) N/V and Dizziness codeine Adverse Reaction (Intermediate, Verified 01/02/23 08:52) Abdominal Pain hydrocodone [From Vicodin] Adverse Reaction (Intermediate, Verified 01/02/23 08:52) N/V and Dizziness oxycodone [From Percocet] Adverse Reaction (Intermediate, Verified 01/02/23 08:52) N/V and Dizziness Medications See EMR [facility] Medical History Abnormal EKG Aortic stenosis Asthma Atrial premature depolarization COPD (chronic obstructive pulmonary disease) Fall Lung nodules Nonrheumatic aortic (valve) stenosis TAYLOR (obstructive sleep apnea) Palpitations Premature atrial contraction Surgical History H/O nasal polypectomy History of total right knee replacement Family History Father Heart diseaseMother Heart disease Social History Smoking Status: Current every day smoker tobacco type: cigarettes alcohol intake: never substance use type: does not use ROS Const Const: Positive for fatigue; Negative for weakness, body ache, fever(s) or chills ENT ENT: Negative for dizziness or Nosebleed/epistaxis Cardio Chest Pain: No Palpitations: Yes Edema: Left Muscle aches with walking: None Resp Respiratory: Negative for SOB with activity, SOB at rest, SOB orthopnea\SOB lying down, Cough or paroxysmal nocturnal dyspnea GI GI: Negative nausea, vomiting blood/hematemesis, bright, red blood in stools or black,tarry stools : Negative for hematuria or frequent nighttime urination/ nocturia Musc Musc: Negative for muscle aches/ myalgia Skin Skin: Negative non-healing lesions or rash Neuro Neuro: Negative for dizziness, lightheadedness, near syncope, syncope, orthostatic symptoms or weakness Endo Endo: Positive for fatigue Allergy Allergy/Immunology: Negative for rash Cardiology Exam Const Appearance: cooperative, healthy appearing, comfortable and no acute distress Nutritional Appearance: well nourished and obese Orientation: alert, awake and oriented x3 Head Head: normal to inspection Ears: hearing grossly normal bilaterally Nose: external nose normal Face and Sinus: face symmetric Mouth: moist mucous membranes Eyes General: appearance normal, both eyes and all related structures Eyelids: eyelids normal EOM: EOM intact bilaterally Neck Neck: normal visual inspection and no JVD Carotids: normal carotid upstroke Chest Chest inspection: normal inspection of the chest, symmetric chest movement and normal respiratory effort; Negative cough Auscultation: Bilateral: Clear to Auscultation Cardio Rate: regular rate Rhythm: regular rhythm Heart sounds: S1 normal, S2 normal and murmur; Negative rub or gallop Murmur: Grade 2/6, soft and LLOYD loudest primary aortic area GI GI: normal to inspection and obese Neuro General: patient alert, patient awake, patient oriented x3 and CN's II-XI intact bilaterally Skin Skin: no rashes or lesions noted Extremities Pulses: Normal: Right Posterior Tibial Pulse, Left Posterior Tibial Pulse, Right Radial Pulse and Left Radial Pulse Lower Extremity Edema: None: Right and +1: Left (Post surgery-4 weeks ago) Psych Psychological: normal affect Supplemental Info Echocardiogram from 01/19/2023: Interpretation Summary Normal LV size. Left ventricular systolic function is normal. The estimated ejection fraction is 55 %. Stage 1 diastolic dysfunction. Moderate focal aortic valve calcification. Mean aortic valve gradient 39.5 mmHg. Mild (1+) aortic valve insufficiency. Moderate to severe aortic stenosis. Transthoracic echocardiogram: 09/19/2018 Interpretation Summary Left ventricular systolic function is normal. The estimated ejection fraction is 65 %. The left atrium is mildly enlarged. There is mild mitral annular calcification. Distention of the mitral annular calcification onto the mitral valve leaflet. Mild (1+) mitral valve insufficiency. Trivial tricuspid valve insufficiency. Mild aortic stenosis. Mild (1+) aortic valve insufficiency. Right ventricular systolic pressure estimated to be 35 mmHg. No evidence for diastolic dysfunction. Event monitor: January 2016: During the 30-day monitoring.? The basic rhythm was sinus with rates from 70-110 bpm.? Occasional PACs were noted.? No PVCs were noted.? Patient symptoms of racing heartbeat correlated with sinus tachycardia and a PAC. Assessment and Plan Assessment and Plan (1) Nonrheumatic aortic (valve) stenosis: Status: Chronic Plan: Her echocardiogram showed moderate to severe aortic valve stenosis. She will proceed with heart catheterization. She would then be referred for further valvular work-up. (2) Palpitations: Status: Chronic Plan: This appears stable. We will continue to monitor. She will continue metoprolol succinate 25 mg p.o. daily. (3) Premature atrial contraction: Status: Chronic Plan: She will continue current medical therapy and we will continue to monitor. Plan Details Additional Comments: Thank you for allowing us to participate in the patients plan of care, if you have any questions please do not hesitate to call. This note was generated using a voice recognition system and there may be incor rect words, spelling or punctuation that were not noted when reviewing the office note prior to saving. Portions of this documentation were copied and pasted from previous office visit notes to provide a cohesive continuity of the history. The note has been reviewed, edited, and updated, as necessary. Meaningful Use Info Meaningful Use Diagnoses (Choose all that apply): None applicable Discharge Plan Admission Attending Provider: Darius Ronquillo Primary Care Provider: Mari Mac Discharge Orders/Prescriptions Prescriptions: No Action albuterol sulfate [ProAir HFA] 90 mcg/actuation HFA aerosol inhaler 1 puff INHALATION Q6H aspirin 81 mg tablet,delayed release (DR/EC) 81 mg PO QDAY omega-3 fatty acids [Fish Oil Concentrate] 1,000 mg capsule 1,000 mg PO QDAY cetirizine [Zyrtec] 10 mg capsule 10 mg PO QDAY PRN (Reason: Allergies) fluticasone propionate [Flonase Allergy Relief] 50 mcg/actuation spray,suspension 1 spray INTRANASAL QDAY PRN (Reason: Allergies) pantoprazole 40 mg tablet,delayed release (DR/EC) 40 mg PO DAILY ferrous sulfate 325 mg (65 mg iron) tablet 325 mg PO DAILY fluticasone propion-salmeterol [Wixela Inhub] 250-50 mcg/dose Blister With Device 1 inh INHALATION Q12H sennosides-docusate sodium [Stool Softener-Stimulant Laxat] 8.6-50 mg Tablet 2 tab PO BID Qty: 0 0RF tramadol 50 mg Tablet 100 mg PO Q6H PRN PRN (Reason: 4-10) Qty: 0 0RF acetaminophen 500 mg Tablet 1,000 mg PO Q8 Qty: 0 0RF tizanidine 2 mg Tablet 4 mg PO Q8H PRN PRN (Reason: Muscle Spasms/Musculoskeletal Pain) Qty: 0 0RF metoprolol succinate [Toprol XL] 25 mg tablet extended release 24 hr 25 mg PO QDAY Qty: 90 3RF Referrals / Follow Up: Mari Mac DO [Primary Care Provider] - Disposition Disposition (needs filled in before D/C Order can be placed): Home, Self Care
--- NOTE | 2023-01-29 14:02 | PCM.HP.BLA ---
History and Physical Date of Admission: 02/13/23 This is a 72-year-old white female who presents today to the Water Quality Control Engineer for a left heart catheterization. She has a history of underlying aortic valve stenosis, palpitations, and PACs. She recently underwent an echocardiogram on 01/19/2023 that showed ejection fraction of 55% and moderate to severe aortic valve stenosis with a peak aortic valve gradient of 62 mmHg, mean aortic valve gradient of 39.5 mmHg, and aortic valve area 0.7/0.66 cm?. She will proceed with heart catheterization to define coronary artery anatomy to guide further valvular work-up. She denies chest, arm, jaw, or neck discomfort. She states palpitations. This is intermittent and short lasting. This resolved after stopping the tramadol. She denies bilateral lower extremity edema, but states left lower extremity edema. She denies claudication. She denies shortness of breath with activity, shortness of breath at rest, orthopnea, or PND. She denies chronic cough. She denies significant, sudden weight gain. She denies lightheadedness, dizziness, near-syncope, or syncope. She denies blood in urine, blood in stool, or epistaxis. He denies fever with chills. She denies myalgia. She states fatigue that she attributes to increase in activity with PT. Her exercise level has remained stable. She stopped Lisinopril due to low blood pressure. 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 Required: No Is patient in pain?: No Allergies acetaminophen [From Percocet] Adverse Reaction (Intermediate, Verified 01/02/23 08:52) N/V and Dizziness codeine Adverse Reaction (Intermediate, Verified 01/02/23 08:52) Abdominal Pain hydrocodone [From Vicodin] Adverse Reaction (Intermediate, Verified 01/02/23 08:52) N/V and Dizziness oxycodone [From Percocet] Adverse Reaction (Intermediate, Verified 01/02/23 08:52) N/V and Dizziness Medications See EMR [facility] Medical History Abnormal EKG Aortic stenosis Asthma Atrial premature depolarization COPD (chronic obstructive pulmonary disease) Fall Lung nodules Nonrheumatic aortic (valve) stenosis TAYLOR (obstructive sleep apnea) Palpitations Premature atrial contraction Surgical History H/O nasal polypectomy History of total right knee replacement Family History Father Heart diseaseMother Heart disease Social History Smoking Status: Current every day smoker tobacco type: cigarettes alcohol intake: never substance use type: does not use ROS Const Const: Positive for fatigue; Negative for weakness, body ache, fever(s) or chills ENT ENT: Negative for dizziness or Nosebleed/epistaxis Cardio Chest Pain: No Palpitations: Yes Edema: Left Muscle aches with walking: None Resp Respiratory: Negative for SOB with activity, SOB at rest, SOB orthopnea\SOB lying down, Cough or paroxysmal nocturnal dyspnea GI GI: Negative nausea, vomiting blood/hematemesis, bright, red blood in stools or black,tarry stools : Negative for hematuria or frequent nighttime urination/ nocturia Musc Musc: Negative for muscle aches/ myalgia Skin Skin: Negative non-healing lesions or rash Neuro Neuro: Negative for dizziness, lightheadedness, near syncope, syncope, orthostatic symptoms or weakness Endo Endo: Positive for fatigue Allergy Allergy/Immunology: Negative for rash Cardiology Exam Const Appearance: cooperative, healthy appearing, comfortable and no acute distress Nutritional Appearance: well nourished and obese Orientation: alert, awake and oriented x3 Head Head: normal to inspection Ears: hearing grossly normal bilaterally Nose: external nose normal Face and Sinus: face symmetric Mouth: moist mucous membranes Eyes General: appearance normal, both eyes and all related structures Eyelids: eyelids normal EOM: EOM intact bilaterally Neck Neck: normal visual inspection and no JVD Carotids: normal carotid upstroke Chest Chest inspection: normal inspection of the chest, symmetric chest movement and normal respiratory effort; Negative cough Auscultation: Bilateral: Clear to Auscultation Cardio Rate: regular rate Rhythm: regular rhythm Heart sounds: S1 normal, S2 normal and murmur; Negative rub or gallop Murmur: Grade 2/6, soft and LLOYD loudest primary aortic area GI GI: normal to inspection and obese Neuro General: patient alert, patient awake, patient oriented x3 and CN's II-XI intact bilaterally Skin Skin: no rashes or lesions noted Extremities Pulses: Normal: Right Posterior Tibial Pulse, Left Posterior Tibial Pulse, Right Radial Pulse and Left Radial Pulse Lower Extremity Edema: None: Right and +1: Left (Post surgery-4 weeks ago) Psych Psychological: normal affect Supplemental Info Echocardiogram from 01/19/2023: Interpretation Summary Normal LV size. Left ventricular systolic function is normal. The estimated ejection fraction is 55 %. Stage 1 diastolic dysfunction. Moderate focal aortic valve calcification. Mean aortic valve gradient 39.5 mmHg. Mild (1+) aortic valve insufficiency. Moderate to severe aortic stenosis. Transthoracic echocardiogram: 09/19/2018 Interpretation Summary Left ventricular systolic function is normal. The estimated ejection fraction is 65 %. The left atrium is mildly enlarged. There is mild mitral annular calcification. Distention of the mitral annular calcification onto the mitral valve leaflet. Mild (1+) mitral valve insufficiency. Trivial tricuspid valve insufficiency. Mild aortic stenosis. Mild (1+) aortic valve insufficiency. Right ventricular systolic pressure estimated to be 35 mmHg. No evidence for diastolic dysfunction. Event monitor: January 2016: During the 30-day monitoring.? The basic rhythm was sinus with rates from 70-110 bpm.? Occasional PACs were noted.? No PVCs were noted.? Patient symptoms of racing heartbeat correlated with sinus tachycardia and a PAC. Assessment and Plan Assessment and Plan (1) Nonrheumatic aortic (valve) stenosis: Status: Chronic Plan: Her echocardiogram showed moderate to severe aortic valve stenosis. She will proceed with heart catheterization. She would then be referred for further valvular work-up. (2) Palpitations: Status: Chronic Plan: This appears stable. We will continue to monitor. She will continue metoprolol succinate 25 mg p.o. daily. (3) Premature atrial contraction: Status: Chronic Plan: She will continue current medical therapy and we will continue to monitor.
--- NOTE | 2023-01-31 10:48 | RAD_ITS ---
STUDY: X-RAY CHEST REASON FOR EXAM: Female, 72 years old. Pre-procedure LHC TECHNIQUE: PA and lateral views of the chest. COMPARISON: None. FINDINGS: The lungs are clear and expanded. There is no demonstrated pleural abnormality. Normal size heart. Normal mediastinum and chantel. Normal visualized pulmonary arteries. There is atherosclerotic calcification of the aortic arch with tortuosity. There are diffuse degenerative changes of the visualized thoracic spine. Diffuse osteopenia. There is no demonstrated abnormality of the visualized soft tissue structures of the upper abdomen. RAD/Chest PA and Lateral IMPRESSION: No acute cardiopulmonary disease. Electronically Signed: Adelina Vaca MD at 16:26 EDT ,
[2023-01-31 12:09] LABS: Absolute Lymphocyte Count 1.82 X10^3/uL (0.83-4.51); Absolute Neutrophil Count 3.5 X10^3/uL (2.0-7.7); Basophil# 0.09 X10^3/uL; Basophil% 1.3 % (0-1); Eosinophil# 0.62 X10^3/uL; Eosinophils% 9.3 % (0-5); Hematocrit 41.8 % (37-47); Hemoglobin 12.8 g/dL (12.0-15.0); Lymphocyte # 1.82 X10^3/ul (0.83-4.51); Lymphocyte % 27.2 % (19-41); Mean Corp Hgb Conc 30.6 g/dL (32-36); Mean Corpuscular Hgb 30.1 pg (27.0-32.0); Mean Corpuscular Volume 98.4 fL (81-99); Mean Platelet Vol. 9.8 fl (6.2-12.0); Monocyte# 0.62 X10^3/uL; Monocyte% 9.3 % (0-10); NRBC Flagged by Analyzer 0 % (0-5); Neutrophil # 3.52 X10^3/uL (2.7-7.7); Neutrophil % 52.6 % (47-70); Platelet Count 300 K/mm3 (150-450); RBC Distribution Width CV 13.8 % (11.6-14.6); RBC Distribution Width SD 50.8 fl (35.1-43.9); Red Blood Count 4.25 M/mm3 (4.2-5.4); White Blood Count 6.7 K/mm3 (4.4-11.0)
[2023-01-31 14:39] LABS: Anion Gap 5 (5-15); BUN 14 mg/dL (7-18); BUN/Creat Ratio 12.7 RATIO (10-20); Chloride 109 mmol/L (98-107); EST Glomerular Filtration Rate 52 mL/min (>60); Est Glom Filt Rate - Afr Amer 63 mL/min (>60); Glucose 86 mg/dL (74-106); Potassium 4.1 mmol/L (3.5-5.1); Sodium Level 140 mmol/L (136-145)
[2023-02-12 07:52] VITALS: BMI 34.0
--- NOTE | 2023-02-13 08:59 | CL.D_ITS ---
Patient Name: EDDY MCDONALD Study Date: 02/13/2023 Performing: Darius Ronquillo MD Ht: 63 inches 160.02 cm : 1950 Wt: 192 lbs 87.09 kg Age: 72 Gender: female BSA: 1.9 PROCEDURE(S) PERFORMED [id number]-([id number] ROOT ANGIO WITH HEART CATH [id number])LHC/COR CLINICAL PROFILE AND INDICATIONS Indications: Valvular Disease Heart Failure: None Stress/Imaging Stress/Image Study Performed: No CAD Presentations: No Sxs, no angina. CONCLUSIONS Non obstructive coronary arteries Aortic Valve Stenosis- Severe RECOMMENDATIONS TAVR DESCRIPTION OF PROCEDURE The patient arrived to the procedure lab. The risks and benefits of the procedure as well as a full description of our services here and current unavailability of surgical backup were fully explained to the patient and/or their significant other prior to the catheterization. The Timeout was completed, verifying the correct patient and procedure. The patient's procedural site was prepped and draped in the usual fashion. Local anesthetic was given subcutaneously to right radial region with Lidocaine 2%. Using a modified Seldinger technique, arterial access was obtained via the right radial artery, a 6Fr sheath was inserted. Left Coronary Artery selective angiography was performed in multiple views using a 5 Fr. 4.0 [place] catheter. Right Coronary Artery selective angiography was then performed in multiple views using a 5 Fr. 4.0 [place] catheter.The arterial sheath was pulled and a TR Band was applied for hemostasis CORONARY ANGIOGRAPHY DOMINANCE: Co- Dominant LEFT HEART ASSESSMENT Left Ventricular Ejection Fraction: by LV Gram 65 % Normal LV wall motion Normal Left Ventricular systolic function LEFT MAIN: Mild calcification LEFT ANTERIOR DESCENDING ARTERY: No significant disease noted CIRCUMFLEX ARTERY: No significant disease noted RIGHT CORONARY ARTERY: Mild luminal irregularities less than 30% VALVE FINDINGS: Aortic Valve Stenosis - severe Aortic Valve Calcification - moderate COMPLICATIONS No Complications PROCEDURE MEDICATIONS Fentanyl 50 mcg IV Versed 1 mg IV Oxygen: 2 L/min via nasal cannula Heparin given IA 02/13/2023 08:27:52 Verapamil 2.5mg, 3000 units of Heparin given IA 02/13/2023 08:27:52 SUMMARY OF HEMODYNAMIC DATA Time AIR REST ECG 07:12:35 Art 144/68 (98) 08:06:26 AO 145/74 (105) SA 08:28:26 Signed By Darius Ronquillo MD On 02/13/2023 08:58:18 Darius Ronquillo MD
== END 2023-02-13 10:30 | disposition home or self-care (01) ==
PROVIDERS: Nurse Practitioner Family; PCP Family Medicine; Referring Provider Family Medicine; Visit Provider Internal Medicine Cardiovascular Disease
DX: I35.0 Nonrheumatic aortic (valve) stenosis (principal); J44.9 Chronic obstructive pulmonary disease, unspecified; I36.1 Nonrheumatic tricuspid (valve) insufficiency; M79.89 Other specified soft tissue disorders; G47.33 Obstructive sleep apnea (adult) (pediatric); F17.210 Nicotine dependence, cigarettes, uncomplicated; E66.9 Obesity, unspecified; R00.2 Palpitations; I49.1 Atrial premature depolarization; I25.10 Atherosclerotic heart disease of native coronary artery without angina pectoris; Z79.899 Other long term (current) drug therapy; Z79.82 Long term (current) use of aspirin
CPT/HCPCS: 36415; 71046; 80048; 85025; 93005; 93454; 93567; 99152; 99153; J7040; Q9967; C1769; C1894

== ENCOUNTER → 2023-05-28 | Outpatient (CLI) | payer MEDICARE, SELFPAY ==
--- NOTE | 2023-05-28 09:47 | CR.HP_ITS ---
CR - History & Physical General Arrival date:: 05/28/23 Arrival time:: 09:48 Date of Referral:: 05/04/23 Date of CR Evaluation:: 05/28/23 Referring Physician: Dr. Ronquillo Primary Diagnosis: heart valve replacement History of Present Cardiac Event Onset Date Heart valve replacement or repair:: Yes (onset 04/30/2023) Medications Ambulatory Orders Medication Instructions Recorded albuterol sulfate 90 mcg/actuation 1 puff inhalation Q6H 06/20/17 aerosol inhaler (ProAir HFA) aspirin 81 mg tablet,delayed 81 mg PO QDAY 06/20/17 release cetirizine 10 mg capsule (Zyrtec) 10 mg PO QDAY PRN Allergies 06/20/17 fluticasone propionate 50 1 spray intranasal QDAY PRN 06/20/17 mcg/actuation nasal Allergies spray,suspension (Flonase Allergy Relief) omega-3 fatty acids 1,000 mg 1,000 mg PO QDAY 06/20/17 capsule (Fish Oil Concentrate) ferrous sulfate 325 mg (65 mg 325 mg PO DAILY 08/29/21 iron) tablet pantoprazole 40 mg tablet,delayed 40 mg PO DAILY 08/29/21 release metoprolol succinate 25 mg 25 mg PO QDAY #90 tabs 05/22/22 tablet,extended release 24 hr (Toprol XL) fluticasone 250 mcg-salmeterol 50 1 inh inhalation Q12H 09/10/22 mcg/dose blistr powdr for inhalation (Wixela Inhub) acetaminophen 500 mg tablet 1,000 mg (2 x 500 mg) PO Q8 #0 tabs 09/12/22 sennosides 8.6 mg-docusate sodium 2 tab PO BID #0 tabs 09/12/22 50 mg tablet (Stool Softener-Stimulant Laxative) tizanidine 2 mg tablet 4 mg (2 x 2 mg) PO Q8H PRN PRN 09/12/22 Muscle Spasms/Musculoskeletal Pain #0 tabs tramadol 50 mg tablet 100 mg (2 x 50 mg) PO Q6H PRN PRN 09/12/22 4-10 #0 tabs Allergies Allergies acetaminophen [From Percocet] Adverse Reaction (Intermediate, Verified 01/02/23 08:52) N/V and Dizziness codeine Adverse Reaction (Intermediate, Verified 01/02/23 08:52) Abdominal Pain hydrocodone [From Vicodin] Adverse Reaction (Intermediate, Verified 01/02/23 08:52) N/V and Dizziness oxycodone [From Percocet] Adverse Reaction (Intermediate, Verified 01/02/23 08:52) N/V and Dizziness Sleep Disorder Evaluation Hx of Sleep Apnea: Yes Do you snore loudly (louder than talking or can be heard through closed doors)?: No Do you often feel tired/ fatigued/ sleepy during daytime?: No Has anyone observed you stop breathing during sleep?: No History of Hypertension (for STOP score): No STOP Results: Negative Advanced Directives Advanced Directives Power of Disability Benefits Specialist: No Living Will: No Advance Directives Information Provided: No Advance Directives on File: No Past Medical History Covid-19 Screening Physicial Symptoms Other Clinical Concerns Exposure Risk Pertinent Comorbidities 65 years or older:: Yes Has a chronic lung disease or moderate to severe asthma:: Yes Has a serious heart condition:: Yes Past Medical Illness Past Medical History Abnormal EKG R94.31 Aortic stenosis I35.0 Asthma J45.909 Atrial premature depolarization I49.1 COPD (chronic obstructive pulmonary disease) J44.9 Fall W19.XXXA Lung nodules R91.8 Nonrheumatic aortic (valve) stenosis I35.0 TAYLOR (obstructive sleep apnea) G47.33 Palpitations R00.2 Premature atrial contraction I49.1 Past Surgical History Past Surgical History (Updated 05/04/23 @ 12:08 by Noelle Gomez) H/O nasal polypectomy Z98.890, Z87.09 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 Done at [facility] Family History Summary Family History Father Heart disease Mother Heart disease Social History Smoking History Smoking Status: Former smoker Years Smokin Packs Smoked per Day: 1 (stopped 35-40years ago) Alcohol Use Alcohol Usage: No Substance Abuse Hx Substance Use: No Occupation Occupation (List type of work in comments):: Retired Hobbies, Recreation, Social Activities Hobbies: Other (crafts, cooking, family) Recreational Activities: I am able to engage in all my recreational activities Social Environment Status Marital Status: Current Living Arrangements Living Environment:: Spouse Children How many children do you have?: 2 Do any of your children live nearby?: Yes Safety Do you feel safe in your surroundings?: Yes Assistance Do you need any assistance at home?: no Review of Systems Review of Systems Hints Review of Present Symptoms: Reports Appetite - Special Diet and Sleep - Normal; Denies Shortness of Breath at Rest, Shortness of Breath with Exertion, PVD, Operative Discomfort, Angina, Wound Healing, Dizziness/Lightheadedness, Fatigue, Heart Arrhythmia/Irregularities, Appetite - Normal or Sexual Changes Pain Is Patient Pain Free?: No Pain Location: other (athritis in hands and legs) Pain Level: 12/31 Risk Factor Assessment Chief Complaint Chief Complaint: heart valve replacement Vital Signs Pulse Ox: 95 Blood Pressure: 130/72 Pulse Pulse Rate: 69 Hypertension Blood Pressure Sitting - Left Arm: 130/72 Obesity Height: 5 ft 3 in Weight:: 192 lb Weight in Pounds: 192.0 lbs Body Mass Index (BMI): 34.0 Nutritional Referral for Obesity: No (declines) Physical Inactivity Physical Inactivity: None Risk Stratification Risk Guidelines: Lowest Risk: Risk Factor for Smoking and Risk Factor for Depression and Moderate Risk: Risk Factor for Dyslipidemia, Risk Factor for Diabetes, Risk Factor for Obesity, Risk Factor for Hypertension and Risk Factor for Sedentary Lifestyle For Smoking Smoking Risk Guidelines For Dyslipidemia Dyslipidemia Risk Guidelines For Diabetes Mellitus Diabetes Risk Guidelines For Obesity/Overweight Obesity/Overweight Risk Guidelines For Hypertension Hypertension Risk Guidelines For Sedentary Lifestyle Sedentary Lifestyle Risk Guidelines For Depression Depression Risk Guidelines Family History Family History Father Heart disease Mother Heart disease Motivation Motivation to Participate On a scale of 1 to 10, how prepared are you to commit to attending program?: 8 What do you see as barriers to successfully being able to complete the program?: nothing What do you see as the benefits of succesfully completing the program? In other words, what do you hope to get out of participating in the program?: healthier, more energy Are there issues you are dealing with that will interfere with completing the program?: no Do you have a spouse or signficant other, family or friends who will help support you to complete the program?: yes
--- NOTE | 2023-05-28 09:52 | PCM.CR.ITP ---
Diagnosis General Information Admitting Diagnosis: heart valve replacement Personal Learning Style:: Audio/Visual Stage of change r/t lifestyle modifications:: Contemplation Gave educational material for:: Treating Heart Disease, How The Heart Works, What it means to have Heart Disease, How Coronary Artery Disease is Diagnosed, Heart Procedures, What Heart Medications Do, Risk Factors & Modifications, Living an Active Life, Nutrition, Emotions & Heart Disease, Stress Management & Relaxation and Sleep Disorders & Heart Disease Education/Goals Cardiac Rehabilitation Goals Personal Goals: Initial Assessment: Improve energy level, Improve muscle strength and endurance and Control risk factors (learn risk factor modification) Scale for measuring improvement of personal goals Diagnosis & Disease Process Outcomes/Goals: Pt IDs own risk factors & lifestyle modifications by Session 10, Verbalizes symptoms of angina & response by session 3., Pt independently manages and Other Additional Outcomes/Goals: Plan/Interventions: Assist Pt to ID & engage in lifestyle modification to reduce CVD risk, Instruct on individual risk factors, Review symptoms of angina & emergency actions, Review secondary diagnosis & identify educational needs. and Other see comment 30 day Reassessments:: Not Met 30 day Reassessments:: Not Met 30 day Reassessments:: Not Met 30 day Reassessments:: Not Met Final Reassessments:: Not Met Safety Referral to Physical Therapy: No Referral to [facility] Case Management: No Fall Risk Assessed:: Yes Assistive Devices:: None Exercise - Initial Assessment Visit Date of Eval: 05/28/23 (initial eval) Mets: Pre-: >3 METS for 30 minutes by discharge, >5 METS for 30 minutes by discharge, >7 METS for 30 minutes by discharge and Unable to meet goal due to: (see comment below) Physician Prescribed Exercise Modalities: Treadmill, Airdyne, NuStep, SciFit and Lateral [employer] Frequency: 3x/week for 12 weeks [36 sessions] Intensity: 60-80% of age predicted maximum heart rate reserve Duration: 30 - 45 minutes Current METSs:: 3.0 Target Heart Rate:: 89-104 Resting Blood Pressure: 130/72 EKG Type: SR Outcomes & Goals Goals:: Verbalizes understanding of THR, RPE & goal METS by session 6, Documents in home exercise log/reports 30 min aerobic 5 day/wk by DC, Demonstrates accurate pulse taking by DC and Other additional outcome/goals: see below Intervention & Plan Exercise Program Goals: Instruct on personal THR & RPE, Instruct on MET level & personal MET goal, Show patient to take own pulse /validate performance until accurate, Instruct on home exercise and Other additional plan/int Physical Activity Home Exercise Physical Activity - Home Exercise: Safe Exercise, Warm-up, Self-monitoring, Cool-Down, Home Exercise > 30 min Daily and Sitting Time <3 hours/daily Outcomes & Goals Outcomes/Goals: Demonstrates correct Warm-up/exercise Cool-Down (S3) if = 2.5 METs, Verbalizes symptoms of exercise intolerance by Session 3 (S3), Demonstrate safe equipment use (S3) & follows exercise prescrition (6) and Other: See below Intervention & Plan Plan/Intervention: Instruct warm-up & cool-down if exercising at > 2 METs, Instruct on symptoms of exercise intolerance & actions to take, Instruct & monitor on saf, Assess intial functional capacity & safety risk and Other See below Nutrition - Initial Assessment Program Goals Nutrition Program Goals Patient has diagnosis of Hyperlipidemia (ICD E78)?: No Visit Date of Eval: 05/28/23 (initial eval ) Cholesterol/Lipids (Other Core Measures) Determine presence & major risk factors that modify LDL goal: Cigarette smoking, Hypertension or hypertensive medication, Low HDL cholesterol <40 mg/dL*, Family history of premature CHD in Male < 55 years: female <65 yearsFa and Age men > 45 years; women >/= 55 years Outcomes/Goals: Pt IDs own risk factors & lifestyle modifications by Session 10, Verbalizes symptoms of angina & response by session 3., Pt independently manages and Other Additional Outcomes/Goals: Intervention/Plan: Advocate for lipid panel cholesterol medication if applicable, Instruct on personal lipid levels & lipid goals/NCEP guidelines, Instruct on cholesterol and Other additional plan/int Referral to dietitian:: No (declines) Diabetes (Other Core Measures) Diabetes Type: Not Applicable Weight Mgt (Other Care) Height: 5 ft 3 in Weight:: 192 lb BMI: 34.0 Diagnosis Overweight/Obesity BMI> 30% ICD-10 E66: Yes Diagnosis High BMI/Morbid Obesity BMI> 35% ICD-10 Z68: No Outcomes/Goals: Pt sets, maintains & shows weight loss goal & trend during rehab and Other additional outcomes/goals Intervention/Plan: Instruct on ideal BMI & set weight loss goal w/patient, Assist pt to ID & incorporate diet changes for weight loss by S9, Refer to Structured Weight Loss program as appropriate, Encourage goal of using 250-300dcal per session for weight loss and Other additional plan/interventions Healthy Eating Habits Will attend diet classes:: Yes Outcomes/Goals:: Consume diet rich in vegs,fruits,whole grain/high fiber,fish,lean meat, Limit sat/trans fats,cholesterol & added salts & sugars and Other additional outcome/goals: Intervention/Plan:: Assess current eating habits and Other Additional plan/interventions Education Gave educational materials for:: Signs & symptoms of hypoglycemia, Signs & symptoms of hyperglycemia, Relate diabetes to coronary artery disease and Healthy eating Core - Initial Assessment Visit Date of Eval: 05/28/23 (initial eval) Medication Compliance Preventative Medication(s):: Statin/lipid and Beta gill H/O mental health issues: depression, anxiety, or addiction?: No Doesn?t believe in the benefits of treatment?: No Believes medications are unnecessary or harmful?: No Has a concern about medication side effects?: No Expresses concern over the cost of medications?: No Outcomes/Goals: Verbalizes medications,desired effect & common side effects @ DC, Pt self-reports following medication regimen, Keeps card in wallet w/medications listed by DC and Other additional outcome/goals: Interventions/plans: Instruct on medication effects & side effects, Review medication list w/patient every two weeks, Instruct importance of taking meds as ordered & assist problem solving and Other additional Tobacco Use Tobacco Use: Non-smoker Hypertension Hypertension Diagnosis:: Not Applicable Resting Blood Pressure:: 130/72 [place] [employer] Hypertension Guidelines Outcomes/Goals: Able to verbalize/achieve optimal blood pressure <130/80, Incorporates diet changes & exercise for blood pressure control by DC and Other additional outcomes/goals Interventions/plan: Instruct on optimal blood pressure, hypertension & medications, Instruct on effects of sodium, alcohol, stress, exercise &hypertension and Other additional plan/interventions Tobacco Cessation Referral Smoking Cessation Referral:: No Individual Education/Counseling:: No Education Schedule Given:: Yes Psychosocial - Initial Assess VIsit Date of Eval: 05/28/23 (initial eval ) History of previous Mental disease:: No Target Goals Target Goals Outcomes/Goals: See list Psychosocial Outcomes/Goals:: ID's personal stressors & 2 strategies to manage stress by discharge and Other Additional outcome/goals: Intervention/Plan: See List Interventions/Plan:: Assess stressors,coping strategies & signs of derpression on admission, Instruct/assist pt to develop coping & personal stress Mgt strategies, Refer to Behavioral Health if appropriate, Refer to Physician if appropriate, Instruct patient to recognize signs & symptoms of depression, Instruct patient to recog and Other additional plan/intervention Patient Health Questionnaire PHQ-9 Screening Initial Assessment: 1. Little interest or pleasure in doing things: Not at all 2. Feeling down, depressed, or hopeless: Not at all 3. Trouble falling or staying asleep, or sleeping too much: Several days 4. Feeling tired or having little energy: Not at all 5. Poor appetite or overeating: Not at all 6. Feeling bad about yourself -- or that you are a failure or have let yourself or your family down: Not at all 7. Trouble concentrating on things, such as reading the newspaper or watching television: Not at all 8. Moving or speaking so slowly that other people could have noticed. Or the opposite - being so fidgety or restless that you have been moving around a lot more than usual: Not at all 9. Thoughts that you would be better off , or of hurting yourself in some way: Not at all How difficult have these problems made it for you to do your work, take care of things at home, or get along with other people?: Not difficult at all Total Score: 1 RAUL-Q SV Test Statements CAD is a disease of the arteries in the heart: False Examples of risk factors for heart disease: True Angina is chest pain or discomfort: True The benefits of resistance training include: True Eating more meat and dairy products: False Anti-platelet medications such as aspirin are important: True The only effective way to manage stress: False An exercise warm-up slowly increases heart rate: I Don't Know Prepared, processed foods usually have high sodium: True Depression is common after a heart attack: I Don't Know The statin medications lower cholesterol: True To control blood pressure, lower the amount of sodium: True If someone gets chest discomfort during walking: False Transfats are partially hydrogenated vegetable oils: True Sleep apnea that is not treated increases the risk: False To control cholesterol, one should become a vegetarian: False Someone knows if he/she is exercising at the right level: True Diabetes cannot be prevented with exercise & health eating: True Stress is a large risk for heart attack: True A diet that can help lower blood pressure is rich in: True Total Score Total Correct Responses: 17 Self-Efficacy 6-Item Scale Initial Assessment: We would like to know how confident you are in doing certain activities. Please select your confidence level for: Fatigue Select Number: 10 Physical Discomfort or Pain Select Number: 10 Emotional Distress Select Number: 10 Other Symptoms or Health Problems Select Number: 10 Different Tasks and Activities Select Number: 10 Medication Select Number: 10 Total Score:: 10 Nutrition Survey Nutrition Survey Instructions Scoring Instructions Nutrition Survey Initial: Have you lost >10 lbs over the past 2 months without trying?: No Are you following a special diet at home for diabetes, low fat, or low salt?: Yes Are you interested in meeting with a dietitian for help understanding your diet?: No Do you eat less than 3 meals a day?: No Do you eat fatty meats (villalpando, sausage, ribs, etc), fried foods, desserts, large amounts of salad dressings, margarine, butter, or cheese most days?: No Do you have food allergies? [Enter types in comment field]: Yes Do you eat in restaurants more than 3 times a week?: No Do you season food with salt, seasoning salt, or garlic salt?: No Do you used canned, boxed, frozen meals, or soups, seasoning packets?: No Total Score:: 2 Exercise - Final/Discharge Physician Prescribed Exercise Modalities: Treadmill, Airdyne, NuStep, SciFit and Lateral [place] Frequency: 3x/week for 12 weeks [36 sessions] Intensity: 60-80% of age predicted maximum heart rate reserve Current METSs:: 3.0 Target Heart Rate:: 89-104 Nutrition - 30-Day Assessment Weight Mgt (Other Care) Height: 5 ft 3 in Weight:: 192 lb BMI: 34.0 Nutrition - 60-Day Assessment Weight Mgt (Other Care) Height: 5 ft 3 in Weight:: 192 lb BMI: 34.0 Core - Final Assessment Hypertension Resting Blood Pressure:: 130/72 [place] [employer] Hypertension Guidelines Core - 60-Day Assessment Hypertension Resting Blood Pressure:: 130/72 [place] [employer] Hypertension Guidelines Psychosocial - 30-Day Assess Target Goals Target Goals Psychosocial - 60-Day Assess Target Goals Target Goals Psychosocial - 90-Day Assess Target Goals Target Goals Psychosocial - Final Assessmen Target Goals Target Goals Nutrition - 90-Day Assessment Weight Mgt (Other Care) Height: 5 ft 3 in Weight:: 192 lb BMI: 34.0 Nutrition - Final Assessment Program Goals Patient has diagnosis of Hyperlipidemia (ICD E78)?: No Weight Mgt (Other Care) Height: 5 ft 3 in Weight:: 192 lb BMI: 34.0
[2023-05-28 10:10] VITALS: PULSE 69; O2SAT 95; BMI 34.0
[2023-05-28 10:15] VITALS: BP 130/72
[2023-05-28 10:48] VITALS: BP 130/72; BMI 34.0
== END | disposition home or self-care (01) ==
LOC: CR 09:36
PROVIDERS: PCP Family Medicine; Referring Provider Internal Medicine Cardiovascular Disease; Visit Provider Internal Medicine Cardiovascular Disease
DX: Z00.00 Encounter for general adult medical examination without abnormal findings (principal)

== ENCOUNTER 2023-06-18 09:15 | Outpatient (RCR) | payer MEDICARE, SELFPAY ==
[2023-05-28 10:48] VITALS: BMI 34.0
== END 2023-06-21 23:59 ==
LOC: CR 09:15
PROVIDERS: PCP Family Medicine; Referring Provider Internal Medicine Cardiovascular Disease; Visit Provider Internal Medicine Cardiovascular Disease
DX: Z95.2 Presence of prosthetic heart valve (principal)
CPT/HCPCS: 93798

== ENCOUNTER → 2024-05-26 | Outpatient (CLI) | payer MEDICARE, SELFPAY ==
[2023-05-28 10:48] VITALS: BMI 34.0
--- NOTE | 2024-05-26 08:54 | ECHOD_ITS ---
Reason For Study: VALVE REPLACEMENT Procedure This was a 2D Doppler, Color Flow transthoracic echocardiogram. Exam performed in department. Left Ventricle Normal LV size. Left ventricular systolic function is normal. The left ventricular ejection fraction is 65 %. Stage 1 diastolic dysfunction. No regional wall motion abnormalities noted. Right Ventricle Normal RV size. Normal systolic function. Mitral Valve There is mild to moderate mitral annular calcification. Mild (1+) mitral valve insufficiency. Tricuspid Valve Normal tricuspid valve. Mild (1+) tricuspid valve insufficiency. Pulmonary artery systolic pressure is 30 mmHg. Aortic Valve Peak aortic valve gradient 44 mmHg. Mean aortic valve gradient 26 mmHg. Bioprosthetic aortic valve. Pulmonic Valve Normal pulmonic valve. Great Vessels Normal aortic root. The pulmonary artery is normal size. Inferior vena cava collapse with respiration. Pericardium/Pleural No pericardial effusion. MMode/2D Measurements & Calculations LVIDd: 4.9 cm IVSd: 0.75 cm LVOT diam: 1.8 cm LVIDs: 3.3 cm LVPWd: 0.75 cm LVOT area: 2.5 cm2 RVDd: 3.2 cm FS: 32.0 % _ asc Aorta Diam: 2.6 cm LAV(MOD-bp): 61.3 ml LVAd ap4: 24.1 cm2 LAV(MOD-bp) Indexed: 32.8 ml/m2 LVLd ap4: 6.9 cm LAV(MOD-sp2): 55.2 ml EDV(MOD- sp4): 67.7 ml LAV(MOD-sp4): 66.6 ml EDV(sp4- el): 71.8 ml LVAs ap4: 12.3 cm2 LVLs ap4: 5.7 cm ESV(MOD- sp4): 21.9 ml ESV(sp4- el): 22.4 ml EF(MOD- sp4): 67.7 % EF(sp4- el): 68.8 % _ SV(MOD-sp4): 45.8 ml SV(MOD- sp2): 37.3 ml LVAd ap2: 22.4 cm2 LVLd ap2: 6.9 cm SI(MOD-sp4): 24.5 ml/m2 SI(MOD- sp2): 19.9 ml/m2 EDV(MOD-sp2): 59.0 ml EDV(sp2-el): 61.7 ml LVAs ap2: 12.6 cm2 LVLs ap2: 5.9 cm ESV(MOD-sp2): 21.7 ml ESV(sp2-el): 22.8 ml EF(MOD-sp2): 63.2 % _ SV(sp4-el): 49.4 ml Ao sinus diam: 2.4 cm LA A4 area: 20.6 cm2 _ LA dimension(2D): 4.4 cm TAPSE: 1.9 cm RA A4 area: 9.8 cm2 Time Measurements MV dec time: 0.19 sec Doppler Measurements & Calculations MV E max rosendo: 117.7 cm/sec Lat Peak E' Rosendo: 8.3 cm/sec Med Peak E' Rosendo: 9.1 cm/sec MV A max rosendo: 122.0 cm/sec E/E' lat: 14.1 E/E' med: 12.9 MV E/A: 0.96 _ MV V2 max: 150.5 cm/sec MV dec slope: 606.2 cm/sec2 Ao V2 max: 332.3 cm/sec MV max P.1 mmHg Ao max P.5 mmHg MV V2 mean: 99.3 cm/sec Ao V2 mean: 246.4 cm/sec MV mean P.4 mmHg Ao mean P.4 mmHg MV V2 VTI: 46.5 cm Ao V2 VTI: 78.1 cm MVA(VTI): 1.7 cm2 AV (velocity ratio): 0.41 AZ(I,D): 1.0 cm2 AZ(V,D): 0.90 cm2 _ LV V1 max: 120.7 cm/sec SV(LVOT): 79.5 ml PA V2 max: 98.0 cm/sec LV V1 max P.8 mmHg LV V1 mean P.6 mmHg LV V1 mean: 90.4 cm/sec LV V1 VTI: 32.3 cm _ TR max rosendo: 253.4 cm/sec TR max P.7 mmHg ECHO/Echo Complete Interpretation Summary Normal LV size. Left ventricular systolic function is normal. The left ventricular ejection fraction is 65 %. Bioprosthetic aortic valve. Mean aortic valve gradient 26 mmHg. Pulmonary artery systolic pressure is 30 mmHg. Stage 1 diastolic dysfunction. Ordering Physician: Darius Ronquillo Referring Physician: Darius Ronquillo MD Performed By: Lauren Amin RDCS
== END | disposition home or self-care (01) ==
LOC: CVS 08:45
PROVIDERS: PCP Family Medicine; Referring Provider Internal Medicine Cardiovascular Disease; Visit Provider Internal Medicine Cardiovascular Disease
DX: I35.0 Nonrheumatic aortic (valve) stenosis (principal); R00.2 Palpitations; Z95.2 Presence of prosthetic heart valve
CPT/HCPCS: 93306